=== PATIENT | male | born 1980 | race Caucasian/White ===

== ENCOUNTER → 2016-10-28 | Outpatient (CLI) | payer BC, SELFPAY ==
--- NOTE | 2016-10-28 14:45 | MRI ---
EXAM DESCRIPTION: MRI of the cervical spine CLINICAL HISTORY: CERVICAL DISC DISEASE COMPARISON: None. TECHNIQUE: Multiplanar MRI of the cervical spine was performed without contrast. GENERAL Cervical vertebral body alignment is unremarkable.Vertebral body heights are maintained. The craniocervical and atlantoaxial junctions are unremarkable. No aggressive osseous lesion. C2-3 No significant findings. C3-4 No significant findings. C4-5 No significant findings. C5-6 Bilateral mild neural foraminal narrowing from facet and uncovertebral joint hypertrophy. Mm broad-based posterior disc protrusion noted. The midline diameter of the spinal canal is narrowed to 9 mm. C6-7 2 mm broad-based posterior disc protrusion. The midline diameter of the spinal canal is mildly narrowed to 9 mm. Bilateral neural foramina are unremarkable. C7-T1 No significant findings. CORD AND INTRASPINAL No cervical cord or intraspinal lesions. IMPRESSION: Today's exam demonstrates mild bilateral neural foraminal narrowing at C5-C6 along with mild spinal canal narrowing at C5-6 and C6-7. No evidence of cord contact at any level. Electronically signed by: Raul Franco MD 10/28/2016 14:45
== END ==
LOC: MRI 13:55
PROVIDERS: ATTEND Psychiatry & Neurology Neurology
DX: M50.01 Cervical disc disorder with myelopathy, high cervical region (principal)

== ENCOUNTER 2016-12-14 20:46 | Emergency (ER) | payer BC, SELFPAY ==
[2016-12-14 21:12] VITALS: O2SAT 97
--- NOTE | 2016-12-14 21:12 | ED.PDOC ---
History of Present Illness - General Chief Complaint: Lower Extremity Injury Stated Complaint: indentation to dawkins on Rt leg Time Seen by Provider: 12/14/16 21:09 Source: patient Exam Limitations: no limitations - History of Present Illness Initial Comments: Patient presents saying that he noticed an "indentation" over his middle right tibia today. He was pressing on the bone and surrounding tissue and thought that it seemed more indented than normal. He has had some intermittent pain for two days that lasts for only a few seconds in that area. It is burning and non- radiating with no previous episodes. No hx of trauma to the area. He did get a different pair of shoes in the last two weeks. No other complaints. Timing/Duration: 24 hours Severity: mild Improving Factors: nothing Worsening Factors: nothing Associated Symptoms: denies symptoms Allergies/Adverse Reactions: Allergies NO KNOWN ALLERGY Allergy (Verified 08/09/16 04:59) Home Medications: Ambulatory Orders Esomeprazole Magnesium [Nexium] 40 mg PO DAILY #30 gra 05/10/16 cloNAZepam [Klonopin] 0.5 mg PO Q8HR PRN #12 tab 06/28/16 Citalopram Hydrobromide [Celexa] 40 mg PO DAILY #30 tab 08/09/16 Nitroglycerin 0.4 mg Tab [Nitrostat] 0.4 mg SL PRN PRN 08/09/16 Review of Systems - Review of Systems Constitutional: States: no symptoms reported EENTM: States: no symptoms reported Respiratory: States: no symptoms reported Cardiology: States: no symptoms reported Gastrointestinal/Abdominal: States: no symptoms reported Genitourinary: States: no symptoms reported Musculoskeletal: States: see HPI Skin: States: no symptoms reported Neurological: States: no symptoms reported Endocrine: States: no symptoms reported Hematologic/Lymphatic: States: no symptoms reported Past Medical History (General) - Patient Medical History Hx Seizures: No Hx Stroke: No Hx Dementia: No Hx Asthma: No Hx of COPD: No Hx Cardiac Disorders: No Hx Congestive Heart Failure: No - had stress test Monday Hx Pacemaker: No Hx Hypertension: No Hx Thyroid Disease: No Hx Diabetes: No Hx Gastroesophageal Reflux: Yes Hx Renal Disease: No Hx Cancer: No Hx of HIV: No Hx Hepatitis C: No Hx MRSA: No - Vaccination History Hx Tetanus, Diphtheria Vaccination: No Hx Influenza Vaccination: No Hx Pneumococcal Vaccination: No - Social History Hx Tobacco Use: No Hx Chewing Tobacco Use: No Hx Alcohol Use: Yes - occ Hx Substance Use: No Hx Substance Use Treatment: No Hx Depression: No Hx Physical Abuse: No Hx Emotional Abuse: No Hx Suspected Abuse: No - Female History Patient : No Family Medical History - Family History Mother Family History: No Known Living Status: Still Living Father Living Status: Still Living Hx Family;Other: thyroid removed Physical Exam - Physical Exam Respiratory: lungs clear Cardiovascular/Chest: regular rate, rhythm Gastrointestinal/Abdominal: normal bowel sounds, non tender, soft Extremity: normal range of motion, non-tender, normal inspection, no pedal edema , no calf tenderness Neurologic: no motor/sensory deficits Departure - Departure Clinical Impression: Dawkins splints Disposition: Discharge to Home or Self Care Condition: Good Departure Forms: ED Discharge - Pt. Copy, Patient Portal Self Enrollment Diet: resume usual diet Activity: increase activity as tolerated Referrals: Rip Lord MD [Primary Care Provider] - 1-2 Weeks Home Medications: Ambulatory Orders Esomeprazole Magnesium [Nexium] 40 mg PO DAILY #30 gra 05/10/16 cloNAZepam [Klonopin] 0.5 mg PO Q8HR PRN #12 tab 06/28/16 Citalopram Hydrobromide [Celexa] 40 mg PO DAILY #30 tab 08/09/16 Nitroglycerin 0.4 mg Tab [Nitrostat] 0.4 mg SL PRN PRN 08/09/16 Additional Instructions: Massage the affected area for 15 minutes at night. May take ibuprofen as directed on the bottle for pain relief.
[2016-12-14 22:10] VITALS: BP 149/78; TEMP 98.8
== END 2016-12-14 22:03 | disposition home or self-care (01) ==
LOC: ER 20:46
DX: S86.899A Other injury of other muscle(s) and tendon(s) at lower leg level, unspecified leg, initial encounter (principal); K21.9 Gastro-esophageal reflux disease without esophagitis; Z79.899 Other long term (current) drug therapy; X58.XXXA Exposure to other specified factors, initial encounter

== ENCOUNTER 2017-01-21 08:41 | Emergency (ER) | payer BC ==
[2017-01-21 08:55] VITALS: TEMP 96.6; O2SAT 98
--- NOTE | 2017-01-21 09:08 | ED.PDOC ---
History of Present Illness - General Chief Complaint: General Stated Complaint: sternal discomfort Time Seen by Provider: 01/21/17 08:44 Source: patient, RN notes reviewed, Vital Signs reviewed Exam Limitations: no limitations - History of Present Illness Initial Comments: Patient reports he has had intermittent sternal chest pain since Mon. He did have manipulation done by a Chiropractor on Monday. + SOB, + Nausea - does get this from GERD but feels it has been worse since Mon. No diaphoresis. No similar episodes in the past. Timing/Duration: intermittent - for past 4 days Severity: mild Improving Factors: nothing Worsening Factors: other - Touching Associated Symptoms: chest pain, nausea/vomiting, shortness of breath Allergies/Adverse Reactions: Allergies NO KNOWN ALLERGY Allergy (Verified 08/09/16 04:59) Home Medications: Ambulatory Orders Celecoxib 200 mg PO DAILY 01/21/17 Dexlansoprazole [Dexilant] 60 mg PO DAILY 01/21/17 Escitalopram [Lexapro] 10 mg PO DAILY 01/21/17 Nebivolol HCl [Bystolic] 2.5 mg PO DAILY 01/21/17 Review of Systems - Review of Systems Constitutional: States: see HPI. Denies: chills, diaphoresis, malaise, weakness EENTM: States: no symptoms reported Respiratory: States: see HPI, short of breath. Denies: orthopnea, stridor, wheezing Cardiology: States: chest pain. Denies: edema, palpitations, syncope Gastrointestinal/Abdominal: States: nausea. Denies: abdominal pain, diarrhea, vomiting Musculoskeletal: States: no symptoms reported. Denies: back pain, neck pain Skin: States: no symptoms reported Neurological: States: no symptoms reported. Denies: headache, numbness, paresthesia, tingling, weakness Endocrine: States: no symptoms reported Hematologic/Lymphatic: States: no symptoms reported Past Medical History (General) - Patient Medical History Hx Seizures: No Hx Stroke: No Hx Dementia: No Hx Asthma: No Hx of COPD: No Hx Cardiac Disorders: No Hx Congestive Heart Failure: No Hx Pacemaker: No Hx Hypertension: Yes Hx Thyroid Disease: No Hx Diabetes: No Hx Gastroesophageal Reflux: Yes Hx Renal Disease: No Hx Cancer: No Hx of HIV: No Hx Hepatitis C: No Hx MRSA: No Surgical History: cholecystectomy - Vaccination History Hx Tetanus, Diphtheria Vaccination: No Hx Influenza Vaccination: No Hx Pneumococcal Vaccination: No - Social History Hx Tobacco Use: No Hx Chewing Tobacco Use: No Hx Alcohol Use: Yes - occ Hx Substance Use: No Hx Substance Use Treatment: No Hx Depression: No Hx Physical Abuse: No Hx Emotional Abuse: No Hx Suspected Abuse: No - Female History Patient : No Family Medical History - Family History Mother Family History: No Known Living Status: Still Living Father Living Status: Still Living Hx Family;Other: thyroid removed Physical Exam - Physical Exam General Appearance: Alert, Comfortable, No apparent distress, Well Developed, Well Groomed, Well Hydrated, Well Nourished Ears, Nose, Throat: hearing grossly normal Neck: non-tender, full range of motion, supple, normal inspection Respiratory: lungs clear, normal breath sounds, no respiratory distress, no accessory muscle use, other - tender to palpation along right sternal boarder Cardiovascular/Chest: regular rate, rhythm, no edema, no gallop, no JVD, no murmur Gastrointestinal/Abdominal: non tender, soft Extremity: normal range of motion, non-tender, normal inspection, no pedal edema Neurologic: alert, normal mood/affect, oriented x 3 Skin Exam: normal color, warm/dry Comments: Vital Signs - 24 hr 01/21/17 08:51 Temperature 96.6 F L Pulse Rate [ 65 Left Brachial] Respiratory 16 Rate Blood Pressure 154/91 [Left Arm] O2 Sat by Pulse 98 Oximetry Progress - Results/Orders Results/Orders: Laboratory Tests 01/21/17 01/21/17 09:21 09:21 WBC 6.4 RBC 5.45 Hgb 15.2 Hct 45.4 MCV 83.4 MCH 28.0 MCHC 33.5 RDW 13.9 Plt Count 194 MPV 8.5 Absolute Neuts (auto) 4.10 Absolute Lymphs (auto) 1.40 Absolute Monos (auto) 0.50 Absolute Eos (auto) 0.30 Absolute Basos (auto) 0.00 Neutrophils % 64.6 Lymphocytes % 22.0 Monocytes % 7.6 Eosinophils % 5.2 H Basophils % 0.6 Sodium 140 Potassium 4.2 Chloride 106 Carbon Dioxide 29 Anion Gap 9.2 L BUN 14 Creatinine 0.91 BUN/Creatinine Ratio 15.4 Random Glucose 157 H Serum Osmolality 283.1 Calcium 9.1 Total Bilirubin 0.6 AST 20 ALT 30 Alkaline Phosphatase 85 Creatine Kinase 96 CK-MB (CK-2) 1.1 CK-MB (CK-2) % Not Reportable Troponin I < 0.02 Serum Total Protein 7.1 Albumin 3.8 Globulin 3.3 Albumin/Globulin Ratio 1.2 - EKG/XRAY/CT EKG: Sinus, no ST T wave changes Comments: Normal - Ratee 65 bpm Departure - Departure Clinical Impression: Costochondritis, acute Time of Disposition: 09:57 Disposition: Discharge to Home or Self Care Condition: Good Departure Forms: ED Discharge - Pt. Copy, Patient Portal Self Enrollment Instructions: DI for Costochondritis Diet: resume usual diet Activity: increase activity as tolerated Referrals: Rip Lord MD [Primary Care Provider] - 1-2 Weeks Home Medications: Ambulatory Orders Celecoxib 200 mg PO DAILY 01/21/17 Dexlansoprazole [Dexilant] 60 mg PO DAILY 01/21/17 Escitalopram [Lexapro] 10 mg PO DAILY 01/21/17 Nebivolol HCl [Bystolic] 2.5 mg PO DAILY 01/21/17 Additional Instructions: Ice chest and take Ibuprofen as needed for discomfort.
--- NOTE | 2017-01-21 09:24 | RAD ---
EXAM DESCRIPTION: Chest,2 Views CLINICAL HISTORY: sternal chest pain COMPARISON: June 15, 2016 FINDINGS: Cardiac silhouette is within normal limits. EKG leads project over the chest. Small nodular opacity in the left apex is unchanged compared with the prior exam and compatible with a calcified pulmonary nodule. There is no focal parenchymal or pleural disease. There is no acute osseous process visualized. IMPRESSION: No evidence of acute cardiopulmonary disease. Electronically signed by: Lamont Muniz MD 01/21/2017 9:23 AM CDT
[2017-01-21 10:09] VITALS: BP 144/80
== END 2017-01-21 10:09 | disposition home or self-care (01) ==
LOC: ER 08:41
DX: M94.0 Chondrocostal junction syndrome [Tietze] (principal); I10 Essential (primary) hypertension; K21.9 Gastro-esophageal reflux disease without esophagitis; R11.0 Nausea; Z79.899 Other long term (current) drug therapy

== ENCOUNTER 2017-02-25 10:29 | Emergency (ER) | payer BC ==
--- NOTE | 2017-02-25 10:55 | ED.PDOC ---
History of Present Illness - General Chief Complaint: General Stated Complaint: Dizziness Time Seen by Provider: 02/25/17 10:49 Source: patient Exam Limitations: no limitations - History of Present Illness Initial Comments: Abhijeet Martins 36 y/o male stated that on getting up this am felt dizzy as he move around and tried to work on his computer again had same symptoms. He stated its going pn for a week but much worse thi am ,felt nauseated but no vomiting. no tinnitus,no hearing loss,no blurry vision.Was treated for uri with antibiotics last week. Denies head trauma. Timing/Duration: 4-6 hours, intermittent Severity: moderate Improving Factors: rest Worsening Factors: movement Associated Symptoms: other - none Allergies/Adverse Reactions: Allergies NO KNOWN ALLERGY Allergy (Verified 08/09/16 04:59) Home Medications: Ambulatory Orders Celecoxib 200 mg PO DAILY 01/21/17 Dexlansoprazole [Dexilant] 60 mg PO DAILY 01/21/17 Escitalopram [Lexapro] 10 mg PO DAILY 01/21/17 Nebivolol HCl [Bystolic] 2.5 mg PO DAILY 01/21/17 Meclizine HCl [Dramamine Less Drowsy] 25 mg PO Q6HRS PRN #30 tab 02/25/17 predniSONE 10 mg PO BID #10 tab 02/25/17 Review of Systems - Review of Systems Constitutional: States: no symptoms reported EENTM: States: no symptoms reported Respiratory: States: no symptoms reported Cardiology: States: no symptoms reported Gastrointestinal/Abdominal: States: no symptoms reported Genitourinary: States: no symptoms reported Musculoskeletal: States: no symptoms reported Skin: States: no symptoms reported Neurological: States: other - dizziness Endocrine: States: no symptoms reported Hematologic/Lymphatic: States: no symptoms reported Past Medical History (General) - Patient Medical History Hx Seizures: No Hx Stroke: No Hx Dementia: No Hx Asthma: No Hx of COPD: No Hx Cardiac Disorders: No Hx Congestive Heart Failure: No Hx Pacemaker: No Hx Hypertension: Yes Hx Thyroid Disease: No Hx Diabetes: No Hx Gastroesophageal Reflux: Yes Hx Renal Disease: No Hx Cancer: No Hx of HIV: No Hx Hepatitis C: No Hx MRSA: No Surgical History: cholecystectomy - Vaccination History Hx Tetanus, Diphtheria Vaccination: No Hx Influenza Vaccination: No Hx Pneumococcal Vaccination: No - Social History Hx Tobacco Use: No Hx Chewing Tobacco Use: No Hx Alcohol Use: Yes - occ Hx Substance Use: No Hx Substance Use Treatment: No Hx Depression: No Hx Physical Abuse: No Hx Emotional Abuse: No Hx Suspected Abuse: No - Activities of Daily Living Patient Lives Alone: No - family - Female History Patient : No Family Medical History - Family History Mother Family History: No Known Living Status: Still Living Hx Family Hypertension: Yes - dad Hx Family;Other: myasthenia gravis Father Living Status: Still Living Hx Family;Other: thyroid removed Physical Exam - Physical Exam General Appearance: Alert, No apparent distress, Other - speech fluent Eye Exam: bilateral normal Ears, Nose, Throat: hearing grossly normal, normal ENT inspection, normal pharynx Neck: non-tender, full range of motion, supple Respiratory: chest non-tender, lungs clear, normal breath sounds Cardiovascular/Chest: normal peripheral pulses, regular rate, rhythm, no murmur Peripheral Pulses: radial,right: 2+, radial,left: 2+ Gastrointestinal/Abdominal: normal bowel sounds, non tender, soft Back Exam: normal inspection, no CVA tenderness Extremity: normal range of motion, non-tender, no calf tenderness 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, no motor/sensory deficits, alert, normal mood/affect, oriented x 3 Skin Exam: normal color, warm/dry Progress - Results/Orders Results/Orders: Vital Signs - 8 hr 02/25/17 11:34 Pulse Rate [ 77 LEFT BRACHIAL] Respiratory 20 Rate Blood Pressure 126/75 [LEFT BRACHIAL] O2 Sat by Pulse 95 Oximetry 02/25/17 11:00 EKG STAT Laboratory Results WBC 7.6 K/mm3 (4.8-10.8) 02/25/17 11:13 RBC 5.50 M/mm3 (4.70-6.10) 02/25/17 11:13 Hgb 15.2 gm/dL (14.0-18.0) 02/25/17 11:13 Hct 45.9 % (42.0-52.0) 02/25/17 11:13 MCV 83.6 fl (80.0-94.0) 02/25/17 11:13 MCH 27.6 pg (27.0-31.0) 02/25/17 11:13 MCHC 33.0 g/dL (33.0-37.0) 02/25/17 11:13 RDW 13.3 % (11.5-14.5) 02/25/17 11:13 Plt Count 212 K/mm3 (130-400) 02/25/17 11:13 MPV 8.7 fl (7.40-10.4) 02/25/17 11:13 Absolute Neuts (auto) 5.00 K/uL (1.8-6.8) 02/25/17 11:13 Absolute Lymphs (auto) 1.50 K/uL (1.0-3.4) 02/25/17 11:13 Absolute Monos (auto) 0.60 K/uL (0.2-0.8) 02/25/17 11:13 Absolute Eos (auto) 0.40 K/uL (0.0-0.4) 02/25/17 11:13 Absolute Basos (auto) 0.10 K/uL (0.0-0.1) 02/25/17 11:13 Neutrophils % 66.3 % (42.0-78.0) 02/25/17 11:13 Lymphocytes % 19.8 % (20.0-50.0) L 02/25/17 11:13 Monocytes % 8.1 % (2.0-9.0) 02/25/17 11:13 Eosinophils % 4.9 % (1.0-5.0) 02/25/17 11:13 Basophils % 0.9 % (0.0-2.0) 02/25/17 11:13 Sodium 141 mmol/L (135-145) 02/25/17 11:13 Potassium 3.9 mmol/L (3.6-5.0) 02/25/17 11:13 Chloride 110 mmol/L (101-111) 02/25/17 11:13 Carbon Dioxide 27 mmol/L (21-31) 02/25/17 11:13 Anion Gap 7.9 (12-18) L 02/25/17 11:13 BUN 18 mg/dL (7-18) 02/25/17 11:13 Creatinine 0.95 mg/dL (0.6-1.3) 02/25/17 11:13 BUN/Creatinine Ratio 18.9 (10-20) 02/25/17 11:13 Random Glucose 124 mg/dL (70-105) H 02/25/17 11:13 Serum Osmolality 284.6 mOsm/L (275-295) 02/25/17 11:13 Calcium 9.1 mg/dL (8.4-10.2) 02/25/17 11:13 Standing BP-136/79 hr 73 - EKG/XRAY/CT EKG: Sinus, no ST T wave changes Comments: NSR-HR:78 Departure - Departure Clinical Impression: Dizziness Time of Disposition: 11:49 Disposition: Discharge to Home or Self Care Condition: Good Departure Forms: ED Discharge - Pt. Copy, Patient Portal Self Enrollment Instructions: Dizziness, Nonvertigo, DI for Dizziness-Nonvertigo Referrals: Rip Lord MD [Primary Care Provider] - 1-2 Weeks Prescriptions: Meclizine HCl [Dramamine Less Drowsy] 25 mg PO Q6HRS PRN #30 tab PRN Reason: Dizziness predniSONE 10 mg PO BID #10 tab Home Medications: Ambulatory Orders Celecoxib 200 mg PO DAILY 01/21/17 Dexlansoprazole [Dexilant] 60 mg PO DAILY 01/21/17 Escitalopram [Lexapro] 10 mg PO DAILY 01/21/17 Nebivolol HCl [Bystolic] 2.5 mg PO DAILY 01/21/17 Meclizine HCl [Dramamine Less Drowsy] 25 mg PO Q6HRS PRN #30 tab 02/25/17 predniSONE 10 mg PO BID #10 tab 02/25/17 Additional Instructions: Follow up with primary 02/28 2017 call for appointment as needed
[2017-02-25] MEDS ORDERED: DEXAMETHASONE INJ 4 MG/ML VIAL IM ONE (11:04)
[2017-02-25] MEDS ORDERED: PROMETHAZINE HCL INJ 25 MG/ML VIAL IM ONE (11:05)
[2017-02-25 12:14] VITALS: TEMP 99
[2017-02-25 12:15] VITALS: BP 123/77; O2SAT 97
== END 2017-02-25 12:03 | disposition home or self-care (01) ==
LOC: ER 10:29
DX: R42 Dizziness and giddiness (principal); I10 Essential (primary) hypertension; K21.9 Gastro-esophageal reflux disease without esophagitis; Z79.899 Other long term (current) drug therapy

== ENCOUNTER 2017-04-18 16:41 | Emergency (ER) | payer BC ==
[2017-04-18 16:52] VITALS: TEMP 99
--- NOTE | 2017-04-18 17:18 | ED.PDOC ---
History of Present Illness - General Chief Complaint: Blood Pressure Problem Stated Complaint: elevated blood pressure Time Seen by Provider: 04/18/17 17:11 Source: patient Exam Limitations: no limitations - History of Present Illness Initial Comments: PT STATES STARTED LISINOPRIL/HCTZ 4-5 D AGO. SX TIMING COINCIDED WITH MED CHANGE ("WOOZY", MILDLY SHORT WINDED WHEN AMBULATING). PT STATES BP 130'S YEST AND THIS AM AT DR'S OFFICE AND STILL FELT WOOZY. Improving Factors: immobilization Worsening Factors: movement Allergies/Adverse Reactions: Allergies NO KNOWN ALLERGY Allergy (Verified 08/09/16 04:59) Home Medications: Ambulatory Orders Celecoxib 200 mg PO DAILY 01/21/17 Dexlansoprazole [Dexilant] 60 mg PO DAILY 01/21/17 Escitalopram [Lexapro] 10 mg PO DAILY 01/21/17 Nebivolol HCl [Bystolic] 2.5 mg PO DAILY 01/21/17 Meclizine HCl [Dramamine Less Drowsy] 25 mg PO Q6HRS PRN #30 tab 02/25/17 Lisinopril & Hydrochlorothiazi [Lisinopril/Hctz 10-12.5 mg] 1 tab PO DAILY 04/18 Review of Systems - Review of Systems Constitutional: States: weakness. Denies: chills, diaphoresis EENTM: States: no symptoms reported Respiratory: States: short of breath. Denies: cough, stridor, wheezing Cardiology: Denies: chest pain, palpitations Gastrointestinal/Abdominal: States: no symptoms reported Genitourinary: States: no symptoms reported Musculoskeletal: States: no symptoms reported Skin: States: no symptoms reported Neurological: States: other - MILDLY LIGHT-HEADED. Denies: anxiety, headache, numbness, paresthesia, tingling, tremors Endocrine: States: no symptoms reported Hematologic/Lymphatic: States: no symptoms reported All other Systems: Reviewed and Negative Past Medical History (General) - Patient Medical History Hx Seizures: No Hx Stroke: No Hx Dementia: No Hx Asthma: No Hx of COPD: No Hx Cardiac Disorders: No Hx Congestive Heart Failure: No Hx Pacemaker: No Hx Hypertension: Yes Hx Thyroid Disease: No Hx Diabetes: No Hx Gastroesophageal Reflux: Yes Hx Renal Disease: No Hx Cancer: No Hx of HIV: No Hx Hepatitis C: No Hx MRSA: No Surgical History: cholecystectomy - Vaccination History Hx Tetanus, Diphtheria Vaccination: No Hx Influenza Vaccination: No Hx Pneumococcal Vaccination: No - Social History Hx Tobacco Use: No Hx Chewing Tobacco Use: No Hx Alcohol Use: Yes - occ Hx Substance Use: No Hx Substance Use Treatment: No Hx Depression: No Hx Physical Abuse: No Hx Emotional Abuse: No Hx Suspected Abuse: No - Female History Patient : No Family Medical History - Family History Mother Family History: No Known Living Status: Still Living Hx Family Hypertension: Yes - dad Hx Family;Other: myasthenia gravis Father Living Status: Still Living Hx Family;Other: thyroid removed Physical Exam - Physical Exam General Appearance: Alert, Well Nourished Eye Exam: bilateral normal Ears, Nose, Throat: hearing grossly normal, normal ENT inspection Neck: non-tender, supple Respiratory: chest non-tender, lungs clear, normal breath sounds, no respiratory distress, no accessory muscle use Cardiovascular/Chest: normal peripheral pulses, no edema, no gallop, no JVD, no murmur Peripheral Pulses: radial,right: 2+, radial,left: 2+ Gastrointestinal/Abdominal: normal bowel sounds, non tender Extremity: normal range of motion, non-tender, normal inspection 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 EKG SINUS TACHY (101) ORTHOSTATICS POS FOR TACHYCARDIA: 89 TO 110 TO 133 STANDING. NO HYPO OR HTN ( BP 120'S AND 130'S). SINCE HIS BP IS WITHIN HEALTHY LIMITS 120 -130 AND HE IS STILL HAVING SX THAT STARTED WITH MED CHANGE, THE LISINOPRIL/HCTZ IS THE CULPRIT. THERE IS NO INTRINSIC ACUTE CARDIOPULMONARY PROBLEM. ADVISED TO STOP LISNIPORIL/HCTZ TOMORROW AND SEE HIS DR TOMORROW AM TO CHANGE TO ANOTHER BP MED. (PT USED TO BE ON BYSTOLIC WHICH HE TOLERATED BUT HAD WEIGHT GAIN.) - EKG/XRAY/CT EKG: Sinus, Tachy Departure - Departure Clinical Impression: Light headedness, Medication intolerance, Dyspnea on exertion Disposition: Discharge to Home or Self Care Condition: Good Departure Forms: ED Discharge - Pt. Copy, Patient Portal Self Enrollment Diet: resume usual diet Activity: increase activity as tolerated Referrals: Rip Lord MD [Primary Care Provider] - 04/19/17 Home Medications: Ambulatory Orders Celecoxib 200 mg PO DAILY 01/21/17 Dexlansoprazole [Dexilant] 60 mg PO DAILY 01/21/17 Escitalopram [Lexapro] 10 mg PO DAILY 01/21/17 Nebivolol HCl [Bystolic] 2.5 mg PO DAILY 01/21/17 Meclizine HCl [Dramamine Less Drowsy] 25 mg PO Q6HRS PRN #30 tab 02/25/17 Lisinopril & Hydrochlorothiazi [Lisinopril/Hctz 10-12.5 mg] 1 tab PO DAILY 04/18 Additional Instructions: You are not tolerating the new prescription (lisinopril/HCTZ). Please stop the lisinopril/HCTZ and see your doctor tomorrow morning to start a different blood pressure pill. If he is unable to see you tomorrow, continue your current blood pressure pill until you can get in to see him.
[2017-04-18] MEDS ORDERED: cloNIDine HCL 0.1 MG TAB PO ONE (17:24)
--- NOTE | 2017-04-18 17:48 | RAD ---
EXAM DESCRIPTION: Chest,1 View CLINICAL HISTORY: dyspnea COMPARISON: January 21, 2017 FINDINGS: Cardiac silhouette is within normal limits. There is no focal parenchymal or pleural disease. There is no acute osseous process visualized. IMPRESSION: No evidence of acute cardiopulmonary disease. Electronically signed by: Lamont Muniz MD 04/18/2017 5:46 PM CDT
[2017-04-18 18:23] VITALS: BP 131/87; O2SAT 95
== END 2017-04-18 18:23 | disposition home or self-care (01) ==
LOC: ER 16:41
DX: R42 Dizziness and giddiness (principal); R06.09 Other forms of dyspnea; T46.4X5A Adverse effect of angiotensin-converting-enzyme inhibitors, initial encounter; I10 Essential (primary) hypertension; K21.9 Gastro-esophageal reflux disease without esophagitis; Z79.899 Other long term (current) drug therapy

== ENCOUNTER 2017-06-11 22:36 | Emergency (ER) | payer BC ==
[2017-06-11 22:58] VITALS: TEMP 98.2
--- NOTE | 2017-06-11 23:05 | ED.PDOC ---
History of Present Illness - General Chief Complaint: Respiratory Problem Stated Complaint: cough, JEFF blood clot Time Seen by Provider: 06/11/17 22:46 Source: patient, RN notes reviewed, Vital Signs reviewed Exam Limitations: no limitations - History of Present Illness Comments: Patient comes in with c/o a cough for 1 day. Reports that 1 week ago he was diagnosed with a blood clot in his RUE due to a PICC line. Was told it was not a deep vein and to just take aspirin. Reports he was told if he developed a cough to get checked. No SOB but feels "off". Timing/Duration: this morning Cough Quality/Degree: moderate, dry cough Possible Cause: no prior episodes Improving Factors: nothing Worsening Factors: nothing Associated Symptoms: chest pain/soreness - mild discomfort from coughing Allergies/Adverse Reactions: Allergies NO KNOWN ALLERGY Allergy (Verified 06/11/17 22:58) Home Medications: Ambulatory Orders Amlodipine Besylate [Norvasc] 2.5 mg PO DAILY 06/11/17 Benzonatate Perles [Tessalon Perles] 100 mg PO TID PRN #30 cap 06/11/17 Review of Systems - Review of Systems Constitutional: States: no symptoms reported. Denies: chills, fever, malaise EENTM: States: no symptoms reported Respiratory: States: cough. Denies: orthopnea, short of breath, stridor, wheezing Cardiology: States: chest pain - mild, palpitations. Denies: syncope Gastrointestinal/Abdominal: States: no symptoms reported Musculoskeletal: States: no symptoms reported Skin: States: no symptoms reported Neurological: States: no symptoms reported Hematologic/Lymphatic: States: blood clots All other Systems: No Change from Baseline Past Medical History (General) - Patient Medical History Hx Seizures: No Hx Stroke: No Hx Dementia: No Hx Asthma: No Hx of COPD: No Hx Cardiac Disorders: No Hx Congestive Heart Failure: No Hx Pacemaker: No Hx Hypertension: Yes Hx Thyroid Disease: No Hx Diabetes: No Hx Gastroesophageal Reflux: Yes Hx Renal Disease: No Hx Cancer: No Hx of HIV: No Hx Hepatitis C: No Hx MRSA: No Surgical History: cholecystectomy - Vaccination History Hx Tetanus, Diphtheria Vaccination: No Hx Influenza Vaccination: No Hx Pneumococcal Vaccination: No - Social History Hx Tobacco Use: No Hx Chewing Tobacco Use: No Hx Alcohol Use: Yes - occ Hx Substance Use: No Hx Substance Use Treatment: No Hx Depression: No Feels Threatened In Home Enviroment: No Feels Threatened In a Relationship: No Hx Physical Abuse: No Hx Emotional Abuse: No Hx Suspected Abuse: No - Female History Patient : No Family Medical History - Family History Mother Family History: No Known Living Status: Still Living Hx Family Hypertension: Yes - dad Hx Family;Other: myasthenia gravis Father Living Status: Still Living Hx Family;Other: thyroid removed Physical Exam - Physical Exam General Appearance: Alert, Comfortable, No apparent distress, Well Developed, Well Groomed, Well Hydrated, Well Nourished Neck: supple, normal inspection Respiratory: chest non-tender, lungs clear, normal breath sounds, no respiratory distress, no accessory muscle use Cardiovascular/Chest: regular rate, rhythm, no edema, no gallop, no murmur Extremity: normal range of motion, normal inspection Neurologic: alert, normal mood/affect, oriented x 3 Skin Exam: normal color, warm/dry Comments: Vital Signs 06/11/17 22:45 Temperature 98.2 F Pulse Rate [ 73 monitor] Respiratory 16 Rate Blood Pressure 164/97 [Left Arm] O2 Sat by Pulse 97 Oximetry Progress - Progress Progress: 06/11/17 23:33 D-Dimer is normal so unlikely he has a blood clot. Most likely just a viral cough. Will give Tessalon and send Rx to pharmacy. - Results/Orders Results/Orders: Laboratory Tests 06/11/17 23:05 D-Dimer, Quantitative < 230 Departure - Departure Clinical Impression: Cough in adult Time of Disposition: 23:34 Disposition: Discharge to Home or Self Care Condition: Good Departure Forms: ED Discharge - Pt. Copy, Patient Portal Self Enrollment Instructions: DI for Cough -- Adult Diet: resume usual diet Activity: increase activity as tolerated Referrals: Rip Lord MD [Primary Care Provider] - 1-2 Weeks Prescriptions: Benzonatate Perles [Tessalon Perles] 100 mg PO TID PRN #30 cap PRN Reason: Cough Home Medications: Ambulatory Orders Amlodipine Besylate [Norvasc] 2.5 mg PO DAILY 06/11/17 Benzonatate Perles [Tessalon Perles] 100 mg PO TID PRN #30 cap 06/11/17
[2017-06-11] MEDS ORDERED: BENZONATATE PERLES 100 MG CAP PO ONE (23:33)
[2017-06-11 23:45] VITALS: BP 142/90; O2SAT 98
== END 2017-06-11 23:45 | disposition home or self-care (01) ==
LOC: ER 22:36
DX: R05 Cough (principal); I10 Essential (primary) hypertension; K21.9 Gastro-esophageal reflux disease without esophagitis

== ENCOUNTER 2017-06-13 12:42 | Emergency (ER) | payer BC ==
--- NOTE | 2017-06-13 13:27 | ED.PDOC ---
History of Present Illness - General Chief Complaint: Respiratory Problem Stated Complaint: cough Time Seen by Provider: 06/13/17 13:16 Source: patient Exam Limitations: no limitations - History of Present Illness Comments: Abhijeet Martins 36 y/o male stated that for the last 4 days had been having slightly productive constant cough for the last 4 days no fever ,hemoptysis, SOB but pain on coughing Timing/Duration: other - 4 days ago Cough Quality/Degree: mild, productive cough Possible Cause: no prior episodes Improving Factors: nothing Worsening Factors: nothing Associated Symptoms: denies symptoms Allergies/Adverse Reactions: Allergies NO KNOWN ALLERGY Allergy (Verified 06/11/17 22:58) Home Medications: Ambulatory Orders Amlodipine Besylate [Norvasc] 2.5 mg PO DAILY 06/11/17 Benzonatate Perles [Tessalon Perles] 100 mg PO TID PRN #30 cap 06/11/17 Albuterol Inhaler [Ventolin Hfa Inhaler] 108 mcg IN Q6HRS PRN #1 inh 06/13/17 Azithromycin [Zithromax Z-Evangelista] 1 ea PO DAILY #1 pack 06/13/17 Chlorpheniramine-Dm [Cough & Cold 4-30 mg] 1 tab PO QID #30 tab 06/13/17 Review of Systems - Review of Systems Constitutional: States: no symptoms reported EENTM: States: no symptoms reported Respiratory: States: see HPI Cardiology: States: no symptoms reported Gastrointestinal/Abdominal: States: no symptoms reported Genitourinary: States: no symptoms reported Musculoskeletal: States: neck pain - history of herniated disc Skin: States: no symptoms reported Past Medical History (General) - Patient Medical History Hx Seizures: No Hx Stroke: No Hx Dementia: No Hx Asthma: No Hx of COPD: No Hx Cardiac Disorders: No Hx Congestive Heart Failure: No Hx Pacemaker: No Hx Hypertension: Yes Hx Thyroid Disease: No Hx Diabetes: No Hx Gastroesophageal Reflux: Yes Hx Renal Disease: No Hx Cancer: No Hx of HIV: No Hx Hepatitis C: No Hx MRSA: No - Vaccination History Hx Tetanus, Diphtheria Vaccination: No Hx Influenza Vaccination: No Hx Pneumococcal Vaccination: No - Social History Hx Tobacco Use: No Hx Chewing Tobacco Use: No Hx Alcohol Use: Yes - occ Hx Substance Use: No Hx Substance Use Treatment: No Hx Depression: No Hx Physical Abuse: No Hx Emotional Abuse: No Hx Suspected Abuse: No - Female History Patient : No Family Medical History - Family History Mother Family History: No Known Living Status: Still Living Hx Family Hypertension: Yes - dad Hx Family;Other: myasthenia gravis Father Living Status: Still Living Hx Family;Other: thyroid removed Physical Exam - Physical Exam General Appearance: Alert, No apparent distress Eye Exam: bilateral normal ENT Exam: normal ENT inspection, TMs normal Neck: supple Respiratory: lungs clear, normal breath sounds, other - tenderness left rib cage Cardiovascular/Chest: regular rate, rhythm, no murmur Gastrointestinal/Abdominal: non tender, soft, no organomegaly Extremity: no pedal edema, no calf tenderness Neurologic: alert, oriented x 3 Progress - Progress Progress: 06/13/17 13:29 Vital Signs - 8 hr 06/13/17 12:43 Temperature 98.5 F Pulse Rate [ 89 Left Radial] Respiratory 20 Rate Blood Pressure 154/92 [Left Arm] O2 Sat by Pulse 98 Oximetry - EKG/XRAY/CT EKG: Sinus Comments: Heart rate-90 w/PAC XRAY: chest - mild opacities Departure - Departure Clinical Impression: Bronchitis Time of Disposition: 14:18 Disposition: Discharge to Home or Self Care Condition: Good Departure Forms: ED Discharge - Pt. Copy, Patient Portal Self Enrollment Instructions: DI for Acute Bronchitis Referrals: Rip Lord MD [Primary Care Provider] - 1-2 Weeks Prescriptions: Albuterol Inhaler [Ventolin Hfa Inhaler] 108 mcg IN Q6HRS PRN #1 inh PRN Reason: Wheezing Azithromycin [Zithromax Z-Evangelista] 1 ea PO DAILY #1 pack Chlorpheniramine-Dm [Cough & Cold 4-30 mg] 1 tab PO QID #30 tab Home Medications: Ambulatory Orders Amlodipine Besylate [Norvasc] 2.5 mg PO DAILY 06/11/17 Benzonatate Perles [Tessalon Perles] 100 mg PO TID PRN #30 cap 06/11/17 Albuterol Inhaler [Ventolin Hfa Inhaler] 108 mcg IN Q6HRS PRN #1 inh 06/13/17 Azithromycin [Zithromax Z-Evangelista] 1 ea PO DAILY #1 pack 06/13/17 Chlorpheniramine-Dm [Cough & Cold 4-30 mg] 1 tab PO QID #30 tab 06/13/17
--- NOTE | 2017-06-13 13:44 | RAD ---
Study: Frontal and Lateral Views of the Chest. Indication: cough Comparison: April 18, 2017. IMPRESSION: Cardiomegaly. Minimal opacities at the lung bases are new compared to the prior and may reflect mild edema or pneumonia or atelectasis. Short-term follow-up recommended. No pleural effusion or pneumothorax. Tiny calcified granuloma left lung apex. No acute osseous abnormality. Electronically signed by: Ralph Rosario MD 06/13/2017 1:42 PM CDT
[2017-06-13 14:33] VITALS: BP 145/78; TEMP 97.4; O2SAT 100
== END 2017-06-13 14:30 | disposition home or self-care (01) ==
LOC: ER 12:42
DX: J40 Bronchitis, not specified as acute or chronic (principal)

== ENCOUNTER 2017-06-22 17:07 | Emergency (ER) | payer BC ==
[2017-06-22 19:11] VITALS: TEMP 97.7
[2017-06-22] MEDS ORDERED: POTASSIUM CHLORIDE ELIXIR 20 MEQ/15 ML UD PO ONE (20:02)
--- NOTE | 2017-06-22 20:08 | ED.PDOC ---
History of Present Illness - General Chief Complaint: General Stated Complaint: Swelling and pain in legs Time Seen by Provider: 06/22/17 17:19 Source: patient Exam Limitations: no limitations - History of Present Illness Initial Comments: the patient is a 36-year-old male with a significant history of anxiety over medical issues presenting secondary to some aching in the hamstrings of both legs and both calves. 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 He was reporting some mild swelling of both legs as well. No shortness of breath. Again he has been much more active than normal. No rashes. No itching. No shortness of breath or chest pain. No palpitations. He has been out in the heat. There has been some question in the past of him being a borderline diabetic so an A1c was ordered to make surenothing was getting out of control on that front. Timing/Duration: 4-6 hours Severity: mild Improving Factors: nothing Worsening Factors: movement Associated Symptoms: denies symptoms Allergies/Adverse Reactions: Allergies NO KNOWN ALLERGY Allergy (Verified 06/11/17 22:58) Home Medications: Ambulatory Orders Aspirin [Aspirin Adult Low Dose] 81 mg PO DAILY 06/22/17 Review of Systems - Review of Systems Constitutional: States: no symptoms reported EENTM: States: no symptoms reported Respiratory: States: no symptoms reported Cardiology: States: edema Gastrointestinal/Abdominal: States: no symptoms reported Genitourinary: States: no symptoms reported Musculoskeletal: States: muscle pain Skin: States: no symptoms reported Neurological: States: anxiety Endocrine: States: no symptoms reported All other Systems: No Change from Baseline Past Medical History (General) - Patient Medical History Hx Seizures: No Hx Stroke: No Hx Dementia: No Hx Asthma: No Hx of COPD: No Hx Cardiac Disorders: No Hx Congestive Heart Failure: No Hx Pacemaker: No Hx Hypertension: Yes Hx Thyroid Disease: No Hx Diabetes: No Hx Gastroesophageal Reflux: Yes Hx Renal Disease: No Hx Cancer: No Hx of HIV: No Hx Hepatitis C: No Hx MRSA: No Surgical History: cholecystectomy - Vaccination History Hx Tetanus, Diphtheria Vaccination: No Hx Influenza Vaccination: No Hx Pneumococcal Vaccination: No Immunizations Up to Date: Yes - Social History Hx Tobacco Use: No Hx Chewing Tobacco Use: No Hx Alcohol Use: No Hx Substance Use: No Hx Substance Use Treatment: No Hx Depression: No Hx Physical Abuse: No Hx Emotional Abuse: No Hx Suspected Abuse: No - Female History Patient : No Family Medical History - Family History Mother Family History: No Known Living Status: Still Living Hx Family Hypertension: Yes - dad Hx Family;Other: myasthenia gravis Father Living Status: Still Living Hx Family;Other: thyroid removed Physical Exam - Physical Exam General Appearance: Alert, Anxious, Comfortable, No apparent distress Eye Exam: bilateral normal Ears, Nose, Throat: hearing grossly normal, normal ENT inspection, normal pharynx Neck: non-tender, full range of motion, supple Respiratory: chest non-tender, lungs clear, normal breath sounds, no respiratory distress, no accessory muscle use Cardiovascular/Chest: normal peripheral pulses, regular rate, rhythm, no edema Peripheral Pulses: radial,right: 2+, radial,left: 2+, dorsalis pedis,right: 2+, dorsalis pedis,left: 2+ Gastrointestinal/Abdominal: non tender, soft Rectal Exam: deferred Back Exam: normal inspection, no CVA tenderness, no vertebral tenderness Extremity: normal range of motion, no calf tenderness, normal capillary refill, other - very trace swelling over bilateral ankles.inimal discomfort to palpation over bilateral calves and bilateral hamstrings. No palpable cords. No gross deformity. No bruising and no rash. 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 He needs to keep well hydrated. Additionally he does have a very mild low potassium. He was given a dose here. He needs to have it rechecked in 2 weeks. ER warnings are given. - Results/Orders Results/Orders: Laboratory Tests 06/22/17 06/22/17 06/22/17 19:20 19:20 19:20 WBC 7.7 RBC 5.20 Hgb 14.6 Hct 42.8 MCV 82.3 MCH 28.1 MCHC 34.1 RDW 13.3 Plt Count 214 MPV 9.2 Absolute Neuts (auto) 4.90 Absolute Lymphs (auto) 1.80 Absolute Monos (auto) 0.70 Absolute Eos (auto) 0.20 Absolute Basos (auto) 0.10 Neutrophils % 63.0 Lymphocytes % 23.7 Monocytes % 9.4 H Eosinophils % 3.1 Basophils % 0.8 Sodium 141 Potassium 3.5 L Chloride 109 Carbon Dioxide 26 Anion Gap 9.5 L BUN 9 Creatinine 0.91 BUN/Creatinine Ratio 9.9 L Random Glucose 83 Hemoglobin A1c 5.1 Serum Osmolality 279.1 Calcium 8.8 Magnesium 2.1 Total Bilirubin 0.6 AST 23 ALT 37 Alkaline Phosphatase 64 Creatine Kinase 69 CK-MB (CK-2) 0.4 CK-MB (CK-2) % Not Reportable Troponin I < 0.02 Serum Total Protein 6.4 Albumin 3.7 Globulin 2.7 Albumin/Globulin Ratio 1.4 Departure - Departure Clinical Impression: Myalgia, Hypokalemia Disposition: Discharge to Home or Self Care Condition: Fair Departure Forms: ED Discharge - Pt. Copy, Patient Portal Self Enrollment Instructions: DI for Muscle Strain Diet: regular diet Activity: increase activity as tolerated Referrals: Rip Lord MD [Primary Care Provider] - 1-2 Weeks Home Medications: Ambulatory Orders Aspirin [Aspirin Adult Low Dose] 81 mg PO DAILY 06/22/17 Additional Instructions: the patient's 36-year-old male presenting with muscular soreness secondary to exertion. He needs to keep well hydrated. Additionally he does have a very mild low potassium. He was given a dose here. He needs to have it rechecked in 2 weeks. ER warnings are given.
[2017-06-22 21:06] VITALS: BP 135/85; O2SAT 97
== END 2017-06-22 21:06 | disposition home or self-care (01) ==
LOC: ER 17:07
DX: M79.1 Myalgia (principal); E87.6 Hypokalemia

== ENCOUNTER 2017-07-03 16:06 | Emergency (ER) | payer BC ==
[2017-07-03 16:28] VITALS: TEMP 98.6; O2SAT 97
--- NOTE | 2017-07-03 18:36 | ED.PDOC ---
History of Present Illness - General Chief Complaint: Problem Stated Complaint: possible UTI Time Seen by Provider: 07/03/17 17:29 Source: patient Exam Limitations: no limitations - History of Present Illness Initial Comments: The patient is a 36-year-old male presenting to the emergency room secondary to some mild urinary frequency over the last day or 2. No other real new symptoms. No back pain. No fever. No dysuria. No chest pain. No shortness of breath. No inability to void. The patient is a frequent visitor of the emergency room. Timing/Duration: 24 hours Severity: mild Improving Factors: nothing Worsening Factors: nothing Associated Symptoms: denies symptoms Allergies/Adverse Reactions: Allergies NO KNOWN ALLERGY Allergy (Verified 06/11/17 22:58) Home Medications: Ambulatory Orders Aspirin [Aspirin Adult Low Dose] 81 mg PO DAILY 06/22/17 Review of Systems - Review of Systems Constitutional: States: no symptoms reported EENTM: States: no symptoms reported Respiratory: States: no symptoms reported Cardiology: States: no symptoms reported Gastrointestinal/Abdominal: States: no symptoms reported Genitourinary: States: frequency. Denies: discharge, dysuria, pain Musculoskeletal: States: no symptoms reported Skin: States: no symptoms reported Neurological: States: no symptoms reported Endocrine: States: no symptoms reported All other Systems: No Change from Baseline Past Medical History (General) - Patient Medical History Hx Seizures: No Hx Stroke: No Hx Dementia: No Hx Asthma: No Hx of COPD: No Hx Cardiac Disorders: No Hx Congestive Heart Failure: No Hx Pacemaker: No Hx Hypertension: Yes Hx Thyroid Disease: No Hx Diabetes: No Hx Gastroesophageal Reflux: Yes Hx Renal Disease: No Hx Cancer: No Hx of HIV: No Hx Hepatitis C: No Hx MRSA: No Surgical History: cholecystectomy - Vaccination History Hx Tetanus, Diphtheria Vaccination: No Hx Influenza Vaccination: No Hx Pneumococcal Vaccination: No - Social History Hx Tobacco Use: No Hx Chewing Tobacco Use: No Hx Alcohol Use: No Hx Substance Use: No Hx Substance Use Treatment: No Hx Depression: No Hx Physical Abuse: No Hx Emotional Abuse: No Hx Suspected Abuse: No - Female History Patient : No - Triage Comment ED Triage Comment: Pt states he believes he has an UTI that started over the weekend. States he feels the pain on the left side of his back mario. when he moves. Family Medical History - Family History Mother Family History: No Known Living Status: Still Living Hx Family Hypertension: Yes - dad Hx Family;Other: myasthenia gravis Father Living Status: Still Living Hx Family;Other: thyroid removed Physical Exam - Physical Exam General Appearance: Alert, Comfortable, No apparent distress Eye Exam: bilateral normal Ears, Nose, Throat: hearing grossly normal Respiratory: no respiratory distress, no accessory muscle use Cardiovascular/Chest: no edema Peripheral Pulses: radial,right: 2+, radial,left: 2+ Gastrointestinal/Abdominal: non tender, soft Rectal Exam: deferred Back Exam: no CVA tenderness 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 I see no evidence of significant infection. He needs to keep well- hydrated as the urine is fairly concentrated. ER warnings were given. He needs to follow up with his primary care doctor later this week. Departure - Departure Clinical Impression: Urinary frequency Disposition: Discharge to Home or Self Care Condition: Fair Departure Forms: ED Discharge - Pt. Copy, Patient Portal Self Enrollment Diet: diabetic diet Activity: increase activity as tolerated Referrals: Rip Lord MD [Primary Care Provider] - 1-5 Days Home Medications: Ambulatory Orders Aspirin [Aspirin Adult Low Dose] 81 mg PO DAILY 06/22/17 Additional Instructions: the patient is a 36-year-old male presenting with some mild urinary frequency. I see no evidence of significant infection. He needs to keep well- hydrated as the urine is fairly concentrated. ER warnings were given. He needs to follow up with his primary care doctor later this week.
[2017-07-03 18:40] VITALS: BP 137/89
== END 2017-07-03 18:45 | disposition home or self-care (01) ==
LOC: ER 16:06
DX: R35.0 Frequency of micturition (principal); I10 Essential (primary) hypertension; K21.9 Gastro-esophageal reflux disease without esophagitis

== ENCOUNTER 2017-07-19 21:13 | Emergency (ER) | payer BC ==
--- NOTE | 2017-07-19 22:19 | ED.PDOC ---
History of Present Illness - General Chief Complaint: Cardiovascular Problem Stated Complaint: left arm numbness Time Seen by Provider: 07/19/17 21:21 Source: patient, RN notes reviewed, Vital Signs reviewed Exam Limitations: no limitations - History of Present Illness Initial Comments: Patient comes in with c/o L shoulder and upper chest pain for the past few days. Today he got concerned and checked his blood pressure and it was high. He wanted to come in to be sure nothing bad was going on. He does have 2 herniated discs in his neck with a pinched nerve that causes pain across his shoulders and down into his legs. He has an appointment with a neurosurgeon tomorrow. Chest has been tender to palpation since having the issues with his neck. The pain over the past few days was a pressure/achy pain. No SOB, Nausea or Diaphoresis with the pain. Timing/Duration: days - 3 Severity: moderate Location: shoulder - L and L upper chest Activities at Onset: none Prior Chest Pain/Cardiac Workup: no prior chest pain Improving Factors: nothing Worsening Factors: nothing Nitro Today/Relief: no nitro taken today Aspirin Treatment Today: no aspirin today Associated Symptoms: chest pain Allergies/Adverse Reactions: Allergies NO KNOWN ALLERGY Allergy (Verified 07/19/17 21:27) Home Medications: Ambulatory Orders Aspirin [Aspirin Adult Low Dose] 81 mg PO DAILY 06/22/17 Review of Systems - Review of Systems Constitutional: States: no symptoms reported Respiratory: States: no symptoms reported. Denies: short of breath Cardiology: States: chest pain. Denies: palpitations, syncope Gastrointestinal/Abdominal: States: no symptoms reported. Denies: nausea Musculoskeletal: States: see HPI, neck pain Skin: States: no symptoms reported Neurological: States: see HPI, numbness, paresthesia All other Systems: No Change from Baseline Past Medical History (General) - Patient Medical History Hx Seizures: No Hx Stroke: No Hx Dementia: No Hx Asthma: No Hx of COPD: No Hx Cardiac Disorders: No Hx Congestive Heart Failure: No Hx Pacemaker: No Hx Hypertension: Yes Hx Thyroid Disease: No Hx Diabetes: No Hx Gastroesophageal Reflux: Yes Hx Renal Disease: No Hx Cancer: No Hx of HIV: No Hx Hepatitis C: No Hx MRSA: No Surgical History: no surgical history - Vaccination History Hx Tetanus, Diphtheria Vaccination: No Hx Influenza Vaccination: No Hx Pneumococcal Vaccination: No - Social History Hx Tobacco Use: No Hx Chewing Tobacco Use: No Hx Alcohol Use: Yes - occ Hx Substance Use: No Hx Substance Use Treatment: No Hx Depression: No Hx Physical Abuse: No Hx Emotional Abuse: No Hx Suspected Abuse: No - Female History Patient : No Family Medical History - Family History Mother Family History: No Known Living Status: Still Living Hx Family Hypertension: Yes - dad Hx Family;Other: myasthenia gravis Father Living Status: Still Living Hx Family;Other: thyroid removed Physical Exam - Physical Exam General Appearance: Alert, Comfortable, No apparent distress, Well Developed, Well Groomed, Well Hydrated, Well Nourished Neck: supple, tender lateral, tender midline Respiratory: lungs clear, normal breath sounds, no respiratory distress, no accessory muscle use, other - chest wall tender to palpation bilaterally Cardiovascular/Chest: regular rate, rhythm, no edema, no gallop, no JVD, no murmur Gastrointestinal/Abdominal: normal bowel sounds, non tender, soft, no organomegaly, no pulsatile mass Extremity: normal range of motion, non-tender, normal inspection, no pedal edema Neurologic: alert, normal mood/affect, oriented x 3 Skin Exam: normal color, warm/dry Comments: Vital Signs 07/19/17 21:27 Temperature 98.8 F Pulse Rate 92 H Pulse Rate [ 92 H left] Respiratory 18 Rate Blood Pressure 161/82 [laft] O2 Sat by Pulse 97 Oximetry Progress - Progress Progress: 07/19/17 23:12 Normal labs, EKG and CXR. Symptoms most likely due to his cervical radiculopathy. Keep appt with surgeon tomorrow. BP improved @ 135/77 - Results/Orders Results/Orders: Laboratory Tests 07/19/17 07/19/17 22:31 22:31 WBC 9.0 RBC 5.38 Hgb 15.3 Hct 44.6 MCV 82.8 MCH 28.5 MCHC 34.4 RDW 13.4 Plt Count 231 MPV 9.2 Absolute Neuts (auto) 5.70 Absolute Lymphs (auto) 2.00 Absolute Monos (auto) 0.90 H Absolute Eos (auto) 0.40 Absolute Basos (auto) 0.10 Neutrophils % 63.4 Lymphocytes % 22.2 Monocytes % 9.8 H Eosinophils % 4.0 Basophils % 0.6 Sodium 135 Potassium 3.7 Chloride 104 Carbon Dioxide 25 Anion Gap 9.7 L BUN 10 Creatinine 1.01 BUN/Creatinine Ratio 9.9 L Random Glucose 99 Serum Osmolality 269.2 L Calcium 8.7 Total Bilirubin 1.0 AST 20 ALT 30 Alkaline Phosphatase 61 Creatine Kinase 65 CK-MB (CK-2) 0.6 CK-MB (CK-2) % Not Reportable Troponin I < 0.02 Serum Total Protein 6.6 Albumin 3.7 Globulin 2.9 Albumin/Globulin Ratio 1.3 - EKG/XRAY/CT EKG: Sinus, no ST T wave changes Comments: Normal sinus thythm - Rate 87 XRAY: chest - No acute process per Rad Departure - Departure Clinical Impression: Cervical radiculopathy Time of Disposition: 23:14 Disposition: Discharge to Home or Self Care Condition: Good Departure Forms: ED Discharge - Pt. Copy, Patient Portal Self Enrollment Instructions: DI for Cervical Radiculopathy Diet: resume usual diet Activity: increase activity as tolerated Referrals: Rip Lord MD [Primary Care Provider] - 1-2 Weeks Home Medications: Ambulatory Orders Aspirin [Aspirin Adult Low Dose] 81 mg PO DAILY 06/22/17 Additional Instructions: Keep appointment with Surgeon tomorrow
[2017-07-19 22:53] VITALS: TEMP 98; O2SAT 96
--- NOTE | 2017-07-19 22:57 | RAD ---
EXAM DESCRIPTION: Chest,1 View CLINICAL HISTORY: 36 years Male L shoulder/chest pain COMPARISON: 06/13/2017. FINDINGS: The cardiomediastinal silhouette appears unremarkable. Mild opacity at the left costophrenic angle is likely from overlying soft tissues. No definite consolidating infiltrates or pleural effusions. No pneumothorax. IMPRESSION: No definite acute abnormality is identified. Electronically signed by: Kimani Gillespie MD 07/19/2017 10:56 PM CDT
[2017-07-19 23:27] VITALS: BP 140/89
== END 2017-07-19 23:26 | disposition home or self-care (01) ==
LOC: ER 21:13
DX: M54.12 Radiculopathy, cervical region (principal); I10 Essential (primary) hypertension; K21.9 Gastro-esophageal reflux disease without esophagitis

== ENCOUNTER → 2017-09-11 | Outpatient (CLI) | payer BC ==
--- NOTE | 2017-09-12 08:34 | RAD ---
EXAM DESCRIPTION: Cervical Spine,3 Views CLINICAL HISTORY: 36 years Male, RADICULOPATHY COMPARISON: None. FINDINGS: 3 views of the cervical spine show postoperative changes related previous ACDF at C5-6 and C6-7. No hardware competition is identified. Is no prevertebral soft tissue swelling or gas. No vertebral body fracture or subluxation. IMPRESSION: Postoperative changes related previous ACDF at C5-6 and C6-7 without apparent hardware other surgical complication. Electronically signed by: Dwayne Arevalo MD 09/12/2017 8:33 AM [facility]
--- NOTE | 2017-09-12 08:45 | RAD ---
EXAM DESCRIPTION: Cervical Spine,Flex/Ext CLINICAL HISTORY: 36 years Male, RADICULOPATHY COMPARISON: Routine examination of the cervical spine. FINDINGS: Flexion and extension lateral views of the cervical spine demonstrate previous anterior plating and anterior interbody fusion with graft material at the C5-6 and C6-7 levels with anatomic alignment. Normal alignment on both flexion and extension views were are evident with no significant motion or malalignment at the level of internal fixation. IMPRESSION: Satisfactory alignment of the internally fixed lower cervical spine from C5 to C7 on flexion-extension views. Electronically signed by: Rip Gong MD 09/12/2017 8:44 AM [facility]
== END | disposition home or self-care (01) ==
LOC: RAD 10:32
PROVIDERS: ATTEND Neurological Surgery
DX: M47.892 Other spondylosis, cervical region (principal); M54.12 Radiculopathy, cervical region; M54.2 Cervicalgia

== ENCOUNTER → 2018-01-02 | Outpatient (CLI) | payer BC ==
--- NOTE | 2018-01-03 09:31 | CT ---
EXAM DESCRIPTION: Cervical Spine CLINICAL HISTORY: RADICULOPATHY COMPARISON: None Available. TECHNIQUE: Cervical CT is performed with thin-section axial imaging. MPRs are created and reviewed as well. FINDINGS: Axial bone window images reveal intact ring of C1. No abnormal widening of the atlantodens interval. No fracture of the vertebral bodies or transverse processes or posterior elements. Lung apices appear clear. There is bilateral petrous apical pneumatization. Skull base appears intact. No cervical mass or adenopathy. Sagittal reformatted images show normal alignment of vertebral bodies and facets. No jumped facet or facet fracture. Normal craniocervical alignment. No prevertebral soft tissue swelling. No a avulsion of the spinous processes. Spondylosis: Patient is status post anterior cervical interbody fusion C5-C7 with no visible hardware complication. Bridging bone across the disc space is seen anteriorly at the C6-7 more than C5-6 level. No hardware complication or vertebral malalignment. No prevertebral soft tissue swelling. Coronal reformatted images show normal atlantooccipital and atlantoaxial alignment. The base of the dens is intact as is the body of C2. Intact lateral masses. Axial images through the disc levels were obtained. C2-3: Minimal midline protrusion of the posterior disc margin measures 3.6 mm in AP dimension without spinal stenosis or cord contouring. No neural foraminal narrowing. Facets appear normal. C3-4: No significant posterior annular bulge or herniation. No spinal stenosis or cord contouring. Neural foramina appear widely patent. Facets appear normal. C4-5: No significant posterior annular bulge or herniation. No cord contouring or spinal stenosis or neural foraminal narrowing. C5-6: At this fused level, minimal bony ridge is seen without significant spinal canal narrowing. In the mid sagittal plane, the AP diameter of the spinal canal is 1.23 cm. Neural foramina appear widely patent with normal facets. C6-7: At this fused disc level, mild posterior bony ridge is seen with AP diameter of the spinal canal mildly decreased to 1.17 cm. On the sagittal images there is no neural foraminal narrowing. Cord is not seen due to metal artifact. C7-T1: No posterior discal abnormality, spinal stenosis or neural foraminal narrowing. Facets appear normal. IMPRESSION: Negative for fracture or posttraumatic subluxation. Status post anterior interbody fusion C5-C7. This exam was performed according to our departmental dose-optimization program, which includes automated exposure control, adjustment of the mA and/or kV according to patient size and/or use of iterative reconstruction technique. Total DLP equals 596.93 mGycm. Electronically signed by: Martínez Fontenot MD 01/03/2018 9:29 AM CDT
== END | disposition home or self-care (01) ==
LOC: CT 15:33
PROVIDERS: ATTEND Psychiatry & Neurology Neurology
DX: M50.01 Cervical disc disorder with myelopathy, high cervical region (principal); M50.123 Cervical disc disorder at C6-C7 level with radiculopathy

== ENCOUNTER → 2018-02-22 | Outpatient (CLI) | payer BC | LOC: GMAM 17:09 | PROVIDERS: ATTEND Family Medicine | DX: R53.83 Other fatigue (principal) ==

== ENCOUNTER 2018-04-05 07:48 | Emergency (ER) | payer BC ==
[2018-04-05] MEDS ORDERED: ASPIRIN (CHEWABLE) 81 MG TAB PO ONE (07:57)
[2018-04-05] MEDS ORDERED: ASPIRIN (CHEWABLE) 81 MG TAB ONE (07:59)
[2018-04-05 08:01] VITALS: TEMP 98.8
--- NOTE | 2018-04-05 08:01 | ED.PDOC ---
History of Present Illness - General Chief Complaint: Chest Pain/ND Stated Complaint: chest pain Time Seen by Provider: 04/05/18 07:57 Source: patient Exam Limitations: no limitations - History of Present Illness Initial Comments: patient comes in today for substernal chest pain. 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 Patient was walking around and suddenly started feeling moderate chest pain that felt sharp with some shortness of breath and substernal area. Patient states it feels like a soreness and is worse with movement or if people push on his chest. He is otherwise been in normal health with the exception of some sinus congestion. He denies any fever , chills, diaphoresis, nausea, emesis, cough, or congestion. Patient has had chest pain in the past but states it always been something that was not cardiac such as heartburn or reflux. Patient denies any recent change in activity or trauma. He's had no recent travel and he has not taken any medication or by mouth intake. Patient has a history of hypertension. He has no family history of coronary artery disease. He has never smoked and does not drink or take illicit drugs. Timing/Duration: 1/2 hour Severity/Quality: moderate, sharp Location: substernal Chest Pain Radiation: no radiation Activities at Onset: activity Prior Chest Pain/Cardiac Workup: non-cardiac Improving Factors: nothing Worsening Factors: movement Nitro Today/Relief: no nitro taken today Aspirin Treatment Today: 81 mg x 1, 325 mg x 1, provided by ED Associated Symptoms: shortness of breath Allergies/Adverse Reactions: Allergies NO KNOWN ALLERGY Allergy (Verified 07/19/17 21:27) Home Medications: Ambulatory Orders Aspirin [Aspirin Adult Low Dose] 81 mg PO DAILY 06/22/17 Review of Systems - Review of Systems Constitutional: States: no symptoms reported. Denies: chills, diaphoresis, fever EENTM: States: no symptoms reported Respiratory: States: short of breath. Denies: cough, orthopnea, wheezing Cardiology: States: chest pain. Denies: edema, palpitations, syncope Gastrointestinal/Abdominal: States: no symptoms reported. Denies: abdominal pain, constipation, diarrhea, nausea, vomiting Genitourinary: States: no symptoms reported Musculoskeletal: States: no symptoms reported Skin: States: no symptoms reported Neurological: States: no symptoms reported Past Medical History (General) - Patient Medical History Hx Seizures: No Hx Stroke: No Hx Dementia: No Hx Asthma: No Hx of COPD: No Hx Cardiac Disorders: No Hx Congestive Heart Failure: No Hx Pacemaker: No Hx Hypertension: Yes Hx Thyroid Disease: No Hx Diabetes: No Hx Gastroesophageal Reflux: Yes Hx Renal Disease: No Hx Cancer: No Hx of HIV: No Hx Hepatitis C: No Hx MRSA: No - Vaccination History Hx Tetanus, Diphtheria Vaccination: No Hx Influenza Vaccination: No Hx Pneumococcal Vaccination: No - Social History Hx Tobacco Use: No Hx Chewing Tobacco Use: No Hx Alcohol Use: Yes - occ Hx Substance Use: No Hx Substance Use Treatment: No Hx Depression: No Hx Physical Abuse: No Hx Emotional Abuse: No Hx Suspected Abuse: No - Female History Patient : No Family Medical History - Family History Mother Family History: No Known Living Status: Still Living Hx Family Hypertension: Yes - dad Hx Family;Other: myasthenia gravis Father Living Status: Still Living Hx Family;Other: thyroid removed Physical Exam - Physical Exam General Appearance: No apparent distress Eyes, Ears, Nose, Throat Exam: PERRL/EOMI, normal ENT inspection, TMs normal Neck: non-tender, full range of motion, supple, normal inspection Respiratory: chest non-tender, lungs clear, normal breath sounds, no respiratory distress Cardiovascular/Chest: normal peripheral pulses, regular rate, rhythm, no edema, no gallop, no JVD, other - tenderness to sternal area with reproduction of the pain Peripheral Pulses: radial,right: 2+, radial,left: 2+ Gastrointestinal/Abdominal: normal bowel sounds, non tender, soft, no organomegaly, no pulsatile mass Neurologic: alert, oriented x 3 Skin Exam: normal color Progress - Progress Progress: 04/05/18 08:45 04/05/18 07:58 EKG .ONCE 04/05/18 08:09 CARDIAC PANEL,ER Stat 04/05/18 08:45 Ketorolac Tromethamine Inj [Toradol Inj] 30 mg IV ONCE ONE Laboratory Results WBC 5.8 K/mm3 (4.8-10.8) 04/05/18 08:09 RBC 5.53 M/mm3 (4.70-6.10) 04/05/18 08:09 Hgb 15.4 gm/dL (14.0-18.0) 04/05/18 08:09 Hct 45.8 % (42.0-52.0) 04/05/18 08:09 MCV 82.8 fl (80.0-94.0) 04/05/18 08:09 MCH 27.9 pg (27.0-31.0) 04/05/18 08:09 MCHC 33.7 g/dL (33.0-37.0) 04/05/18 08:09 RDW 13.7 % (11.5-14.5) 04/05/18 08:09 Plt Count 244 K/mm3 (130-400) 04/05/18 08:09 MPV 8.8 fl (7.40-10.4) 04/05/18 08:09 Absolute Neuts (auto) 3.80 K/uL (1.8-6.8) 04/05/18 08:09 Absolute Lymphs (auto) 1.20 K/uL (1.0-3.4) 04/05/18 08:09 Absolute Monos (auto) 0.50 K/uL (0.2-0.8) 04/05/18 08:09 Absolute Eos (auto) 0.20 K/uL (0.0-0.4) 04/05/18 08:09 Absolute Basos (auto) 0.10 K/uL (0.0-0.1) 04/05/18 08:09 Neutrophils % 65.4 % (42.0-78.0) 04/05/18 08:09 Lymphocytes % 20.9 % (20.0-50.0) 04/05/18 08:09 Monocytes % 8.6 % (2.0-9.0) 04/05/18 08:09 Eosinophils % 4.2 % (1.0-5.0) 04/05/18 08:09 Basophils % 0.9 % (0.0-2.0) 04/05/18 08:09 PT 13.2 SECONDS (9.4-12.5) H 04/05/18 08:09 INR 1.140 04/05/18 08:09 PTT (SP) 32.2 SECONDS (25.1-36.5) 04/05/18 08:09 Sodium 139 mmol/L (135-145) 04/05/18 08:09 Potassium 3.8 mmol/L (3.6-5.0) 04/05/18 08:09 Chloride 109 mmol/L (101-111) 04/05/18 08:09 Carbon Dioxide 25 mmol/L (21-31) 04/05/18 08:09 Anion Gap 8.8 (12-18) L 04/05/18 08:09 BUN 15 mg/dL (7-18) 04/05/18 08:09 Creatinine 1.10 mg/dL (0.6-1.3) 04/05/18 08:09 BUN/Creatinine Ratio 13.6 (10-20) 04/05/18 08:09 Random Glucose 122 mg/dL (70-105) H 04/05/18 08:09 Serum Osmolality 279.7 mOsm/L (275-295) 04/05/18 08:09 Calcium 8.7 mg/dL (8.4-10.2) 04/05/18 08:09 Magnesium 1.9 mg/dL (1.8-2.5) 04/05/18 08:09 Creatine Kinase 78 IU/L (38-174) 04/05/18 08:09 Troponin I < 0.02 ng/mL (0.01-0.05) 04/05/18 08:09 Patient understands that EKG, chest xray, history and physical are all reassuring. This does not appear to be cardiac in nature. Patient has known hiatal hernia and this may be causative. Patient given Toradol for pain and will follow up with PCP in 2-3 days to recheck. In the interim, Tylenol and IBU ok to take for pain. Return to ER for increase chest pain, shortness of breath, change or worsening symptoms. - Results/Orders Results/Orders: Patient Name: AMA JOHNSON Gender: Male Date of : 1980 Referring Physician: KHADIJAH BAGLEY Organization: [facility] Accession Number: [id number] Requested Date: April 05, 2018 07:57 Report Status: Final Requested Procedure: 1 Procedure Description: Chest,1 View Modality: CR Findings Reporting MD: Nithin Handy Fellow MD: Not available Dictation Time: Lance Crewmember: Not available Manager Commission Date: EXAM DESCRIPTION: Chest,1 View CLINICAL HISTORY: 37 years Male, chest pain COMPARISON: July 19, 2017. TECHNIQUE: AP radiograph of the chest was obtained. FINDINGS: Trachea is midline.The cardiomediastinal silhouette is normal in size. The pulmonary vasculature is within normal limits.The lungs are clear with no acute consolidation.No evidence of pleural effusions. IMPRESSION: No acute cardiopulmonary process. - EKG/XRAY/CT EKG: Sinus, no ST T wave changes Comments: HR 64 with normal axis and normal QTc XRAY: chest Xray Comments: normal Departure - Departure Clinical Impression: Hiatal hernia, Chest pain, atypical Disposition: Discharge to Home or Self Care Condition: Fair Departure Forms: ED Discharge - Pt. Copy, Patient Portal Self Enrollment Instructions: DI for Chest Pain Diet: regular diet Activity: increase activity as tolerated Referrals: Rip Lord MD [Primary Care Provider] - 1-2 Weeks Home Medications: Ambulatory Orders Aspirin [Aspirin Adult Low Dose] 81 mg PO DAILY 06/22/17 Additional Instructions: follow up with PCP in 2-3 days. Return to ER for increase pain, shortness of breath, change in symptoms. May use OTC tylenol or ibuprofen for pain
--- NOTE | 2018-04-05 08:24 | RAD ---
EXAM DESCRIPTION: Chest,1 View CLINICAL HISTORY: 37 years Male, chest pain COMPARISON: July 19, 2017. TECHNIQUE: AP radiograph of the chest was obtained. FINDINGS: Trachea is midline.The cardiomediastinal silhouette is normal in size. The pulmonary vasculature is within normal limits.The lungs are clear with no acute consolidation.No evidence of pleural effusions. IMPRESSION: No acute cardiopulmonary process. Electronically signed by: Nithin Handy MD 04/05/2018 8:23 AM CDT
[2018-04-05] MEDS ORDERED: ALUM & MAG HYDROX-SIMETHICONE 30 ML, LIDOCAINE VISCOUS 2% 15 ML PO ONE ×2 (08:25)
[2018-04-05] MEDS ORDERED: LIDOCAINE HCL 2% (MOUTH-THROAT) 15 ML UD ONE (08:27)
[2018-04-05] MEDS ORDERED: ALUM & MAG HYDROX-SIMETHICONE 30 ML UD ONE (08:27)
[2018-04-05] MEDS ORDERED: KETOROLAC TROMETHAMINE INJ 30 MG/ML VIAL IV ONE (08:45)
[2018-04-05 08:58] VITALS: BP 133/76; O2SAT 98
== END 2018-04-05 09:06 | disposition home or self-care (01) ==
LOC: ER 07:48
DX: R07.89 Other chest pain (principal); K21.9 Gastro-esophageal reflux disease without esophagitis; K44.9 Diaphragmatic hernia without obstruction or gangrene; I10 Essential (primary) hypertension; Z79.82 Long term (current) use of aspirin
CPT/HCPCS: 36415; 71045; 80048; 82550; 82553; 84484; 85025; 85610; 85730; 93005; J1885

== ENCOUNTER 2018-08-21 06:42 | Emergency (ER) | payer BC ==
[2018-08-21 07:04] VITALS: BP 133/85; TEMP 98.2; O2SAT 97
--- NOTE | 2018-08-21 07:17 | ED.PDOC ---
History of Present Illness - General Chief Complaint: Neck Injury/Pain Stated Complaint: neck pain x's 4 days status post surgery Time Seen by Provider: 08/21/18 07:09 Source: patient, RN notes reviewed - History of Present Illness Initial Comments: Mister Martins presents to the ED with complaint of an acute exacerbation of neck pain. The patient states that he had cervical fusion of C5 through C7 approximately one year ago by in [facility]. The patient states for the past 4 days he has noted increasing pain in this area which is worse with flexion/extension of the head and neck. He also endorses occasional paresthesias of the BUE but does not have any currently. The patient has no loss of bowel, urinary retention, or saddle anesthesia. The patient has no fever or chills noted as well. Timing/Duration: other - 4 days ago Severity: moderate Improving Factors: medication - apap Worsening Factors: movement Associated Symptoms: other - paresthesias Allergies/Adverse Reactions: Allergies NO KNOWN ALLERGY Allergy (Verified 07/19/17 21:27) Home Medications: Ambulatory Orders Bystolic 08/21/18 Cyclobenzaprine HCl [Cyclobenzaprine HCl] 08/21/18 Prednisone 08/21/18 Review of Systems - Review of Systems Constitutional: States: no symptoms reported EENTM: States: no symptoms reported Respiratory: States: no symptoms reported Cardiology: States: no symptoms reported Gastrointestinal/Abdominal: States: no symptoms reported Genitourinary: States: no symptoms reported Musculoskeletal: States: see HPI Skin: States: no symptoms reported Neurological: States: see HPI Endocrine: States: no symptoms reported Past Medical History (General) - Patient Medical History Hx Seizures: No Hx Stroke: No Hx Dementia: No Hx Asthma: No Hx of COPD: No Hx Cardiac Disorders: No Hx Congestive Heart Failure: No Hx Pacemaker: No Hx Hypertension: Yes Hx Thyroid Disease: No Hx Diabetes: No Hx Gastroesophageal Reflux: Yes Hx Renal Disease: No Hx Cancer: No Hx of HIV: No Hx Hepatitis C: No Hx MRSA: No Surgical History: cholecystectomy - Vaccination History Hx Tetanus, Diphtheria Vaccination: No Hx Influenza Vaccination: No Hx Pneumococcal Vaccination: No - Social History Hx Tobacco Use: No Hx Chewing Tobacco Use: No Hx Alcohol Use: Yes - occ Hx Substance Use: No Hx Substance Use Treatment: No Hx Depression: No Hx Physical Abuse: No Hx Emotional Abuse: No Hx Suspected Abuse: No - Female History Patient : No - Triage Comment ED Triage Comment: Had cervicle surgury year ago, now experiencing pain to back of neck and radiation down shoulders Family Medical History - Family History Mother Family History: No Known Living Status: Still Living Hx Family Hypertension: Yes - dad Hx Family;Other: myasthenia gravis Father Living Status: Still Living Hx Family;Other: thyroid removed Physical Exam - Physical Exam General Appearance: Alert, Obese, Well Developed, Well Groomed Eye Exam: bilateral normal Ears, Nose, Throat: hearing grossly normal, normal ENT inspection Neck: full range of motion, supple, other - there is ttp of the lateral paraspinal muscles noted with deep palpation only. Otherwise the patient is w/o pain. Respiratory: lungs clear, normal breath sounds Cardiovascular/Chest: regular rate, rhythm Peripheral Pulses: radial,right: 2+, radial,left: 2+ Gastrointestinal/Abdominal: non tender, soft Back Exam: normal inspection Extremity: normal range of motion Neurologic: no motor/sensory deficits, oriented x 3 DTR: 2+: Biceps, left, Biceps, right, Triceps, left, Triceps, right, Brachioradialis, left, Brachioradialis, right Skin Exam: normal color Progress - Progress Progress: 08/21/18 07:20 MDM The patient's presentation appears to be an acute exacerbation of his chronic neck pain at this time. It does not appear that the patient is suffering from emergent pathology such as discitis/osteomyelitis/spinal impingement in light of well-appearing, stable vitals, and patient noted hx of this chronic issue. The patient will receive plain film x-rays of the cervical spine at this time. The patient was offered pain control(which he has declined due to currently being asymptomatic s/p taking APAP prior to arrival). If the patient's x-ray is w/o emergent findings, he will be advised about the importance of following up with Dr. Barcenas in [place], [place] in 24-48hours for further evaluation and care. 08/21/18 07:58 The patient remains well at this time. The patient was advised that his cervical spine x-ray is noted to show postsurgical changes at this time. He has been advised that he must follow up with Dr. Barcenas in 24-48hours for recheck. The patient was advised to return to the ED if any concerns arise such as increased pain, weakness, headaches or any other issues arise. The patient verbalized understanding of these instructions. - EKG/XRAY/CT XRAY: c-spine Xray Comments: report reviewed. Departure - Departure Clinical Impression: Neck pain Disposition: Discharge to Home or Self Care Condition: Excellent Departure Forms: ED Discharge - Pt. Copy, Patient Portal Self Enrollment Instructions: DI for Neck Pain, DI for Cervical Muscle Strain, DI for Neck Sprain Diet: resume usual diet Referrals: Rip Lord MD [Primary Care Provider] - 1-2 Days David Barcenas Jr, MD [Physicians] - 1-2 Days (Return to the ED if any concerns arise such as increased pain, weakness, headaches or any other issues arise.) Home Medications: Ambulatory Orders Bystolic 08/21/18 Cyclobenzaprine HCl [Cyclobenzaprine HCl] 08/21/18 Prednisone 08/21/18
--- NOTE | 2018-08-21 07:56 | RAD ---
EXAM DESCRIPTION: Cervical Spine,5 Views CLINICAL HISTORY: 37 years Male, neck pain. COMPARISON: September 11, 2017 FINDINGS: Again seen are postoperative changes related to previous ACDF at C5-6 and C6-7. No hardware or other surgical complication is identified. There is no vertebral body fracture or subluxation. The disc spaces are well-maintained and the nonsurgical levels with limited visualization of the C7-T1 disc space. The spinous processes are intact. Bilateral oblique views show no bony neuroforaminal stenosis. IMPRESSION: Uncomplicated postoperative changes at C5-6 and C6-7. Limited visualization of the C7-T1 disc space, otherwise unremarkable exam. Electronically signed by: Dwayne Arevalo MD 08/21/2018 7:[address] [facility]
== END 2018-08-21 08:15 | disposition home or self-care (01) ==
LOC: ER 06:42
DX: M54.2 Cervicalgia (principal); R20.2 Paresthesia of skin; Z98.1 Arthrodesis status; I10 Essential (primary) hypertension; K21.9 Gastro-esophageal reflux disease without esophagitis

== ENCOUNTER 2018-09-16 23:36 | Emergency (ER) | payer BC ==
[2018-09-16 23:55] VITALS: TEMP 97.9
[2018-09-17] MEDS ORDERED: KETOROLAC TROMETHAMINE INJ 60 MG/2 ML VIAL IM ONE (00:05)
--- NOTE | 2018-09-17 00:12 | ED.PDOC ---
History of Present Illness - General Chief Complaint: General Stated Complaint: RLE pain Time Seen by Provider: 09/17/18 00:04 Source: patient Exam Limitations: no limitations - History of Present Illness Initial Comments: patient comes in today with 4-5 day history of worsening right lower extremity pain. Patient states he often has discomfort in the popliteal area or going do wn his leg but this has become more consistent in the last couple of days. Patient states last couple nights it actually kept him awake with sharp shooting pains behind the popliteal down the side of the leg causing some numbness on his foot. Patient states he's had no trauma or no injury. He denies any swelling or redness. 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 Patient states that often hurts and he does know that he spends between 100-200 miles a day in the sitting position. Patient has a past medical history of hypertension is well-controlled on bystolic. Patient states he has had a clot before but it was not a DVT it was superficial and started after he had a PICC line placed when he had neck surgery. He does not smoke, drink, or take illicit substances. Patient has no family history of pulmonary embolus or DVT that he is aware of. Patient has tried Tylenol for the pain. Patient states the pain is an 8/10. Timing/Duration: 1 week Severity: severe Improving Factors: nothing Worsening Factors: movement Associated Symptoms: denies symptoms Allergies/Adverse Reactions: Allergies NO KNOWN ALLERGY Allergy (Verified 09/16/18 23:55) Home Medications: Ambulatory Orders Nebivolol HCl [Bystolic] 5 mg PO DAILY 09/16/18 Review of Systems - Review of Systems Constitutional: States: no symptoms reported. Denies: chills, fever EENTM: States: no symptoms reported Respiratory: States: no symptoms reported. Denies: cough, short of breath Cardiology: States: no symptoms reported. Denies: chest pain, palpitations Gastrointestinal/Abdominal: States: no symptoms reported. Denies: abdominal pain, diarrhea, nausea, vomiting Musculoskeletal: States: see HPI Past Medical History (General) - Patient Medical History Hx Seizures: No Hx Stroke: No Hx Dementia: No Hx Asthma: No Hx of COPD: No Hx Cardiac Disorders: No Hx Congestive Heart Failure: No Hx Pacemaker: No Hx Hypertension: Yes Hx Thyroid Disease: No Hx Diabetes: No Hx Gastroesophageal Reflux: Yes Hx Renal Disease: No Hx Cancer: No Hx of HIV: No Hx Hepatitis C: No Hx MRSA: No Surgical History: cholecystectomy - Vaccination History Hx Tetanus, Diphtheria Vaccination: No Hx Influenza Vaccination: No Hx Pneumococcal Vaccination: No - Social History Hx Tobacco Use: No Hx Chewing Tobacco Use: No Hx Alcohol Use: Yes - occ Hx Substance Use: No Hx Substance Use Treatment: No Hx Depression: No Hx Physical Abuse: No Hx Emotional Abuse: No Hx Suspected Abuse: No - Female History Patient : No Family Medical History - Family History Mother Family History: No Known Living Status: Still Living Hx Family Hypertension: Yes - dad Hx Family;Other: myasthenia gravis Father Living Status: Still Living Hx Family;Other: thyroid removed Physical Exam - Physical Exam General Appearance: Alert, Comfortable, No apparent distress Ears, Nose, Throat: hearing grossly normal Neck: non-tender Respiratory: chest non-tender, lungs clear, normal breath sounds Cardiovascular/Chest: normal peripheral pulses, regular rate, rhythm, no murmur Peripheral Pulses: radial,right: 2+ Gastrointestinal/Abdominal: normal bowel sounds Extremity: normal inspection, no pedal edema, no calf tenderness, other - normal sensation to sharp and soft touch, normal motor 5/5 Neurologic: alert, oriented x 3 Progress - Progress Progress: 09/17/18 01:04 patient had elevated d-dimer. will give Lovenox 100 mg sc x 1 today. Risks of blood thinner discussed. Patient to have outpatient doppler in am and follow up in the afternoon with his PCP Dr. Lord for results and further treatment if needed. Work excuse for tomorrow given. - Results/Orders Results/Orders: Laboratory Results D-Dimer, Quantitative 0.53 mg/L FEU (0-0.49) H* 09/17/18 00:30 Laboratory Results WBC 7.8 K/mm3 (4.8-10.8) 09/17/18 00:30 RBC 5.49 M/mm3 (4.70-6.10) 09/17/18 00:30 Hgb 15.4 gm/dL (14.0-18.0) 09/17/18 00:30 Hct 45.9 % (42.0-52.0) 09/17/18 00:30 MCV 83.6 fl (80.0-94.0) 09/17/18 00:30 MCH 28.0 pg (27.0-31.0) 09/17/18 00:30 MCHC 33.5 g/dL (33.0-37.0) 09/17/18 00:30 RDW 13.5 % (11.5-14.5) 09/17/18 00:30 Plt Count 244 K/mm3 (130-400) 09/17/18 00:30 MPV 9.2 fl (7.40-10.4) 09/17/18 00:30 Absolute Neuts (auto) 4.50 K/uL (1.8-6.8) 09/17/18 00:30 Absolute Lymphs (auto) 2.10 K/uL (1.0-3.4) 09/17/18 00:30 Absolute Monos (auto) 0.80 K/uL (0.2-0.8) 09/17/18 00:30 Absolute Eos (auto) 0.40 K/uL (0.0-0.4) 09/17/18 00:30 Absolute Basos (auto) 0.10 K/uL (0.0-0.1) 09/17/18 00:30 Neutrophils % 57.4 % (42.0-78.0) 09/17/18 00:30 Lymphocytes % 26.5 % (20.0-50.0) 09/17/18 00:30 Monocytes % 10.7 % (2.0-9.0) H 09/17/18 00:30 Eosinophils % 4.6 % (1.0-5.0) 09/17/18 00:30 Basophils % 0.8 % (0.0-2.0) 09/17/18 00:30 PT 10.8 SECONDS (9.0-10.9) 09/17/18 00:30 INR 1.08 (0.9-1.15) 09/17/18 00:30 PTT (SP) 25.4 SECONDS (21.8-31.6) 09/17/18 00:30 D-Dimer, Quantitative 0.53 mg/L FEU (0-0.49) H* 09/17/18 00:30 Sodium 140 mmol/L (135-145) 09/17/18 00:30 Potassium 4.1 mmol/L (3.6-5.0) 09/17/18 00:30 Chloride 106 mmol/L (101-111) 09/17/18 00:30 Carbon Dioxide 27 mmol/L (21-31) 09/17/18 00:30 Anion Gap 11.1 (12-18) L 09/17/18 00:30 BUN 12 mg/dL (7-18) 09/17/18 00:30 Creatinine 1.11 mg/dL (0.6-1.3) 09/17/18 00:30 BUN/Creatinine Ratio 10.8 (10-20) 09/17/18 00:30 Random Glucose 94 mg/dL (70-105) 09/17/18 00:30 Serum Osmolality 278.9 mOsm/L (275-295) 09/17/18 00:30 Calcium 9.0 mg/dL (8.4-10.2) 09/17/18 00:30 Total Bilirubin 1.0 mg/dL (0.2-1.0) 09/17/18 00:30 AST 21 IU/L (10-42) 09/17/18 00:30 ALT 33 IU/L (10-60) 09/17/18 00:30 Alkaline Phosphatase 82 IU/L (42-121) 09/17/18 00:30 Serum Total Protein 7.3 gm/dL (6.4-8.2) 09/17/18 00:30 Albumin 3.9 g/dl (3.2-5.5) 09/17/18 00:30 Globulin 3.4 gm/dL (2.3-3.5) 09/17/18 00:30 Albumin/Globulin Ratio 1.1 (1.1-1.9) 09/17/18 00:30 Departure - Departure Clinical Impression: Elevated d-dimer Disposition: Discharge to Home or Self Care Condition: Good Departure Forms: ED Discharge - Pt. Copy, Patient Portal Self Enrollment Diet: regular diet Referrals: Rip Lord MD [Primary Care Provider] - 1-2 Weeks Home Medications: Ambulatory Orders Nebivolol HCl [Bystolic] 5 mg PO DAILY 09/16/18 Additional Instructions: outpatient doppler in am and follow up in the afternoon with his PCP Dr. Lord for results and further treatment if needed. Work excuse for tomorrow given.
[2018-09-17] MEDS ORDERED: ENOXAPARIN SODIUM 100 MG/ML SYG SUBCU ONE (01:22)
[2018-09-17 01:33] VITALS: BP 142/86; O2SAT 98
== END 2018-09-17 01:33 | disposition home or self-care (01) ==
LOC: ER 23:36
DX: M79.661 Pain in right lower leg (principal); R79.89 Other specified abnormal findings of blood chemistry; R20.0 Anesthesia of skin; I10 Essential (primary) hypertension; K21.9 Gastro-esophageal reflux disease without esophagitis
CPT/HCPCS: 36415; 80053; 85025; 85379; 85610; 85730; J1650; J1885

== ENCOUNTER → 2018-09-17 | Outpatient (CLI) | payer BC ==
--- NOTE | 2018-09-17 10:00 | US ---
EXAM DESCRIPTION: Venous,Lower Extremity RT CLINICAL HISTORY: RT LEG PAIN COMPARISON: None Available. TECHNIQUE: Right lower extremity venous duplex FINDINGS: Doppler evaluation of the right lower extremity deep veins was performed. Normal color flow is seen in the common femoral, superficial femoral, profunda femoral and greater saphenous veins. Normal flow is seen in the popliteal vein and veins below the knee in the calf. Normal venous compressibility and flow augmentation. IMPRESSION: Negative for evidence of deep venous thrombosis on right lower extremity venous Doppler sonogram. Electronically signed by: Martínez Fontenot MD 09/17/2018 9:58 AM [facility]
== END ==
LOC: US 08:27
PROVIDERS: ATTEND Family Medicine
DX: R79.1 Abnormal coagulation profile (principal)

== ENCOUNTER → 2018-09-27 | Outpatient (CLI) | payer BC, OTHER ==
--- NOTE | 2018-09-27 13:04 | CT ---
EXAM DESCRIPTION: Sinuses CLINICAL HISTORY: 37 years Male, ALLERGIC RHINITIS, EPISTAXIS COMPARISON: None. TECHNIQUE: High resolution transaxial images are obtained through the paranasal sinuses without contrast with coronal reformations provided. This exam was performed according to our departmental dose-optimization program, which includes automated exposure control, adjustment of the mA and/or kV according to patient size and/or use of iterative reconstruction technique. FINDINGS: Ostiomeatal units and paranasal sinuses: The right ostiomeatal unit is patent. There is moderate mucosal thickening about the left maxillary ostium contributing to severe narrowing of the infundibulum. There is mild mucosal thickening in the bilateral maxillary sinuses. Moderate mucosal thickening in the anterior ethmoid sinuses. Mild mucosal thickening in the right frontal sinus. Left frontal and sphenoid sinuses are clear. There is moderate left but no right narrowing of the sphenoethmoidal recess. Nasal septum and osseous structures: Nasal septum is midline. Mastoid air cells are clear. No acute osseous abnormality or destructive osseous process is present. Nasopharyngeal and oropharyngeal soft tissues: The visualized nasopharyngeal and oropharyngeal soft tissues are normal. Orbits and other findings: None. IMPRESSION: 1. There is severe narrowing of the infundibulum of the left ostiomeatal complex. 2. Moderate mucosal thickening of the anterior ethmoid sinuses. 3. Mild mucous thickening of the bilateral maxillary and right frontal sinuses. Electronically signed by: Hernan Azar MD 09/27/2018 1:02 PM [employer]
== END ==
LOC: CT 11:10
PROVIDERS: ATTEND Family Medicine
DX: J30.89 Other allergic rhinitis (principal); R04.0 Epistaxis

== ENCOUNTER → 2020-02-19 | Outpatient (CLI) | payer BC | LOC: GMAM 11:37 | PROVIDERS: ATTEND Family Medicine | DX: Z12.5 Encounter for screening for malignant neoplasm of prostate (principal); E55.9 Vitamin D deficiency, unspecified; I10 Essential (primary) hypertension ==

== ENCOUNTER 2020-03-19 06:41 | Emergency (ER) | payer BC ==
[2020-03-19] MEDS ORDERED: FAMOTIDINE 20 MG TAB PO ONE (07:11)
[2020-03-19] MEDS ORDERED: ASPIRIN TABLET 325 MG TAB PO ONE (07:11)
--- NOTE | 2020-03-19 07:38 | RAD ---
EXAM DESCRIPTION: Chest,2 Views CLINICAL HISTORY: left shoulder discomfort this am COMPARISON: April 05, 2018 FINDINGS: Two-view chest x-ray shows cardiomediastinal silhouette and pulmonary vasculature to be within normal limits. The lungs are normally aerated and clear. Costophrenic angles are sharp. ACDF changes to the lower cervical spine are identified. IMPRESSION: No radiographic evidence of acute cardiopulmonary disease. Electronically signed by: Emanuel Canas MD 03/19/2020 7:36 AM CDT
[2020-03-19] MEDS ORDERED: POTASSIUM CHLORIDE ELIXIR 20 MEQ/15 ML UD PO ONE (07:43)
[2020-03-19] MEDS ORDERED: predniSONE 20 MG TAB PO ONE (10:46)
[2020-03-19] MEDS ORDERED: CYCLOBENZAPRINE HCL 10 MG TAB PO ONE (10:47)
--- NOTE | 2020-03-19 10:52 | ED.PDOC ---
History of Present Illness - General Chief Complaint: Blood Pressure Problem Stated Complaint: left arm pain/numbness Time Seen by Provider: 03/19/20 07:07 Source: patient Exam Limitations: no limitations - History of Present Illness Initial Comments: The patient is a 39-year-old male presents emergency room secondary to pain in his left shoulder that woke him at 530 this morning. He is still having some pain and it does extend up to his left side of his neck. 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 No chest pain or chest pressure. No shortness of breath. Patient does have rheumatoid arthritis and so was not without risk factors. Additionally he is obese and does have a history of hypertension. Is moderately hypertensive upon arrival here but is obviously anxious. Mild discomfort to palpation around the shoulder and extending up the trapezius muscle up towards the neck. No tenderness to palpation over the spinous processes. No focal neurological changes. No fever. The patient has had an allergy flare in the last week. Timing/Duration: 4-6 hours Severity: moderate Improving Factors: nothing Worsening Factors: movement Associated Symptoms: denies symptoms Allergies/Adverse Reactions: Allergies NO KNOWN ALLERGY Allergy (Verified 09/16/18 23:55) Home Medications: Ambulatory Orders Nebivolol HCl [Bystolic] 5 mg PO DAILY 09/16/18 Amoxicillin 500 mg PO TID #21 cap 11/29/19 Benzonatate Perles [Tessalon Perles] 100 mg PO TID #21 cap 11/29/19 Cyclobenzaprine HCl [Flexeril] 10 mg PO TID PRN #20 tab 03/19/20 predniSONE [Prednisone] 20 mg PO DAILY #3 tab 03/19/20 Review of Systems - Review of Systems Constitutional: States: no symptoms reported EENTM: States: nose congestion - And sneezing Respiratory: States: no symptoms reported Cardiology: States: no symptoms reported Gastrointestinal/Abdominal: States: no symptoms reported Genitourinary: States: no symptoms reported Musculoskeletal: States: see HPI Skin: States: no symptoms reported Neurological: States: see HPI, anxiety Endocrine: States: no symptoms reported All other Systems: No Change from Baseline Past Medical History (General) - Patient Medical History Hx Seizures: No Hx Stroke: No Hx Dementia: No Hx Asthma: No Hx of COPD: No Hx Cardiac Disorders: No Hx Congestive Heart Failure: No Hx Pacemaker: No Hx Hypertension: Yes Hx Thyroid Disease: No Hx Diabetes: No Hx Gastroesophageal Reflux: No Hx Renal Disease: No Hx Cancer: No Hx of HIV: No Hx Hepatitis C: No Hx MRSA: No Surgical History: cholecystectomy, other - Vaccination History Hx Tetanus, Diphtheria Vaccination: No Hx Influenza Vaccination: No Hx Pneumococcal Vaccination: No Immunizations Up to Date: No - Social History Hx Tobacco Use: No Hx Chewing Tobacco Use: No Hx Alcohol Use: No Hx Substance Use: No Hx Substance Use Treatment: No Hx Depression: No Feels Threatened In Home Enviroment: No Feels Threatened In a Relationship: No Hx Physical Abuse: No Hx Emotional Abuse: No Hx Suspected Abuse: No - Activities of Daily Living Hospice Agency (if applicable):: None - Female History Patient is a Female of Child Bearing Age (10 -59 yrs old): No Patient : No - Triage Comment ED Triage Comment: at 0545 got up and noticed bp was elevated and left arm numbness and pain Family Medical History - Family History Mother Family History: No Known Living Status: Still Living Hx Family Hypertension: Yes - dad Hx Family;Other: myasthenia gravis Father Living Status: Still Living Hx Family;Other: thyroid removed Physical Exam - Physical Exam General Appearance: Alert, Anxious, No apparent distress Eye Exam: bilateral normal Ears, Nose, Throat: hearing grossly normal, normal pharynx Neck: full range of motion, supple Respiratory: lungs clear, normal breath sounds, no respiratory distress, no accessory muscle use Cardiovascular/Chest: normal peripheral pulses, regular rate, rhythm, no edema Peripheral Pulses: radial,right: 2+, radial,left: 2+ Gastrointestinal/Abdominal: non tender, soft Rectal Exam: deferred Back Exam: no CVA tenderness, no vertebral tenderness Extremity: normal range of motion, no pedal edema, no calf tenderness, normal capillary refill, other - See history of present illness. 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, alert, normal mood/affect - He is anxious, oriented x 3 Skin Exam: normal color Comments: Vital Signs - 24 hr 03/19/20 03/19/20 03/19/20 06:48 07:30 08:00 Temperature 98.3 F 97.8 F Pulse Rate [ 69 63 65 left arm] Respiratory 18 13 17 Rate Blood Pressure 161/97 127/78 135/80 [Left Arm] O2 Sat by Pulse 98 95 Oximetry 03/19/20 03/19/20 09:00 10:00 Temperature 97.8 F Pulse Rate [ 66 69 left arm] Respiratory 18 16 Rate Blood Pressure 135/81 135/77 [Left Arm] O2 Sat by Pulse 96 97 Oximetry Progress - Progress Progress: 03/19/20 10:54 The patient is a 39-year-old male presented emergency room secondary left shoulder pain that woke him early this morning. Repeat cardiac enzymes show no evidence of any rise in troponin and the EKG is reassuring. The pain is most likely from cervical radiculopathy. He has had this issue in the past. He does need to do stretching exercises with his neck and shoulder. Topical heat may prove beneficial. Additionally I am going to place the patient on 3 days of oral prednisone and Flexeril to help reduce spasm and irritation. ER warnings are given. Follow-up with primary care doctor early next week to discuss the possibility of an exercise tolerance test. chele morales [phone] - Results/Orders Results/Orders: Chest x-ray shows no acute pathology. EKG STAT 03/19/20 07:10 Telemetry .CONTINUOUS 03/19/20 07:15 EKG STAT EKG shows normal sinus rhythm at 75 bpm. Normal axis. Normal R wave progression. No ST segment or T wave changes indicative of acute ischemia. Normal QT interval. Laboratory Results - last 24 hr 03/19/20 03/19/20 03/19/20 07:00 07:00 07:00 WBC 6.4 RBC 4.70 Hgb 14.8 Hct 42.4 MCV 90.1 MCH 31.4 H MCHC 34.9 RDW 14.9 H Plt Count 239 MPV 8.6 Absolute Neuts (auto) 4.20 Absolute Lymphs (auto) 1.20 Absolute Monos (auto) 0.70 Absolute Eos (auto) 0.20 Absolute Basos (auto) 0.10 Neutrophils % 65.8 Lymphocytes % 19.0 L Monocytes % 11.4 H Eosinophils % 3.0 Basophils % 0.8 PT 10.4 INR 1.05 PTT (SP) 24.7 Sodium 140 Potassium 3.4 L Chloride 108 Carbon Dioxide 26 Anion Gap 9.4 L BUN 17 Creatinine 0.99 BUN/Creatinine Ratio 17.2 Random Glucose 93 Serum Osmolality 280.6 Calcium 8.7 Magnesium 2.0 Total Bilirubin 1.5 H AST 19 ALT 20 Alkaline Phosphatase 77 Creatine Kinase 57 CK-MB (CK-2) 0.9 CK-MB (CK-2) % Not Reportable Troponin I < 0.02 B-Natriuretic Peptide < 5.0 Serum Total Protein 6.7 Albumin 3.8 Globulin 2.9 Albumin/Globulin Ratio 1.3 TSH 1.82 03/19/20 10:08 WBC RBC Hgb Hct MCV MCH MCHC RDW Plt Count MPV Absolute Neuts (auto) Absolute Lymphs (auto) Absolute Monos (auto) Absolute Eos (auto) Absolute Basos (auto) Neutrophils % Lymphocytes % Monocytes % Eosinophils % Basophils % PT INR PTT (SP) Sodium Potassium Chloride Carbon Dioxide Anion Gap BUN Creatinine BUN/Creatinine Ratio Random Glucose Serum Osmolality Calcium Magnesium Total Bilirubin AST ALT Alkaline Phosphatase Creatine Kinase 50 CK-MB (CK-2) 1.1 CK-MB (CK-2) % Not Reportable Troponin I < 0.02 B-Natriuretic Peptide Serum Total Protein Albumin Globulin Albumin/Globulin Ratio TSH Departure - Departure Clinical Impression: Cervical radiculopathy Disposition: Discharge to Home or Self Care Condition: Fair Departure Forms: ED Discharge - Pt. Copy, Patient Portal Self Enrollment Instructions: Radiculopathy (DC) Referrals: Rip Morales MD [Primary Care Provider] - 1-2 Weeks Prescriptions: Cyclobenzaprine HCl [Flexeril] 10 mg PO TID PRN #20 tab PRN Reason: Muscle Spasms predniSONE [Prednisone] 20 mg PO DAILY #3 tab Home Medications: Ambulatory Orders Nebivolol HCl [Bystolic] 5 mg PO DAILY 09/16/18 Amoxicillin 500 mg PO TID #21 cap 11/29/19 Benzonatate Perles [Tessalon Perles] 100 mg PO TID #21 cap 11/29/19 Cyclobenzaprine HCl [Flexeril] 10 mg PO TID PRN #20 tab 03/19/20 predniSONE [Prednisone] 20 mg PO DAILY #3 tab 03/19/20 Additional Instructions: The patient is a 39-year-old male presented emergency room secondary left shoulder pain that woke him early this morning. Repeat cardiac enzymes show no evidence of any rise in troponin and the EKG is reassuring. The pain is most likely from cervical radiculopathy. He has had this issue in the past. He does need to do stretching exercises with his neck and shoulder. Topical heat may prove beneficial. Additionally I am going to place the patient on 3 days of oral prednisone and Flexeril to help reduce spasm and irritation. ER warnings are given. Follow-up with primary care doctor early next week to discuss the possibility of an exercise tolerance test.
[2020-03-19 11:11] VITALS: BP 119/75; TEMP 97.7; O2SAT 98
== END 2020-03-19 11:05 | disposition home or self-care (01) ==
LOC: ER 06:41
DX: M54.12 Radiculopathy, cervical region (principal); M25.512 Pain in left shoulder; I10 Essential (primary) hypertension; E66.9 Obesity, unspecified
CPT/HCPCS: 36415; 71046; 80053; 82550; 82553; 83735; 83880; 84443; 84484; 85025; 85610; 85730; 93005; J7512

== ENCOUNTER → 2020-03-23 | Outpatient (CLI) | payer BC | LOC: GMAM 11:31 | PROVIDERS: ATTEND Family Medicine | DX: M06.9 Rheumatoid arthritis, unspecified (principal) ==

== ENCOUNTER → 2020-03-26 | Outpatient (CLI) | payer BC ==
--- NOTE | 2020-03-27 09:10 | MRI ---
EXAM DESCRIPTION: Cervical Spine: MRI. CLINICAL HISTORY: 39 years Male SPINAL STENOSIS COMPARISON: MRI scan cervical spine without contrast prior to fusion surgery, October 2016. TECHNIQUE: Multiplanar, high-field MRI, multiple sequences, non-contrast Cervical spine. FINDINGS: ACDF C5-C7. No canal or neural foraminal stenosis. No soft tissue mass or abnormal fluid collection paravertebral soft tissues or in the canal around the cord. Alignment near-anatomic. C3-C4: Disc desiccation. Anterior disc bulging and endplate ridging. Right uncinate spur. Mild to moderate neural foraminal narrowing. Facet joints and ligaments unremarkable. Canal and left neuroforamen patent. C4-C5: Disc desiccation. 2 mm grade 1 anterolisthesis. Minimal canal narrowing. Facets and ligaments are negative. Bilateral neural foramina are patent. C7-T1: Minimal disc desiccation and disc space loss. Posterior bulge. Facets and ligaments negative. Mild canal narrowing. Bilateral neural foramina are patent. Normal signal in the C2-3 disc and T1-2 disc with no bulging. Disc spaces preserved. Canal and neural foramina are patent. Facet joints are unremarkable. Spinal alignment near-anatomic except as described above.. No cord compression or cord edema. Atlantoaxial joint negative.. Base of the cerebellar tonsils is just above the foramen magnum. Paravertebral soft tissues negative.. Vertebral bodies are not compressed at any level. Otherwise normal marrow signal in the remaining vertebral bodies and the posterior elements. IMPRESSION: 1. ACDF at C5-C7 level since the prior study. No hardware complications. No soft tissue mass or fluid. No canal or neural foraminal stenosis. Alignment is near-anatomic. 2. Right uncinate spur at C3-C4 with mild to moderate neural foraminal narrowing. 3. Disc desiccation C4-C5 with grade 1 anterolisthesis. No significant neural foraminal or canal narrowing. Electronically signed by: Anthony Mcclain MD 03/27/2020 9:08 AM CDT
== END ==
LOC: MRI 10:00
PROVIDERS: ATTEND Family Medicine
DX: M48.02 Spinal stenosis, cervical region (principal); M25.78 Osteophyte, vertebrae; M50.321 Other cervical disc degeneration at C4-C5 level; M43.12 Spondylolisthesis, cervical region; Z98.1 Arthrodesis status

== ENCOUNTER → 2020-04-22 | Outpatient (CLI) | payer BC | LOC: GMAM 17:02 | PROVIDERS: ATTEND Family Medicine | DX: R10.84 Generalized abdominal pain (principal) ==

== ENCOUNTER → 2020-05-26 | Outpatient (CLI) | payer BC | END | disposition home or self-care (01) | LOC: GMAM 16:36 | PROVIDERS: ATTEND Family Medicine | DX: R94.5 Abnormal results of liver function studies (principal) ==

== ENCOUNTER → 2020-11-26 | Outpatient (CLI) | payer BC | LOC: GMAM 13:40 | PROVIDERS: ATTEND Family Medicine | DX: E55.9 Vitamin D deficiency, unspecified (principal); Z12.5 Encounter for screening for malignant neoplasm of prostate; I10 Essential (primary) hypertension ==